=== PATIENT | male | born 1940 | race Caucasian/White ===

== ENCOUNTER 2021-09-15 15:33 | Outpatient (CLI) | payer MEDICARE ==
[2021-09-15 20:18] LABS: ESTIMATED AVERAGE GLUCOSE 103 mg/dL (70-100); HEMOGLOBIN A1c% 5.2 % (4.27-6.07)
[2021-09-15 20:32] LABS: BUN - BLOOD UREA NITROGEN 49 mg/dL (6-20); CALCIUM 9.5 mg/dL (8.5-10.3); CARBON DIOXIDE - CO2 25 mmol/L (21-32); CHLORIDE 104 mmol/L (101-111); CHOL/HDL RATIO 3.3 (<5.0); CHOLESTEROL 211 mg/dL; CREATININE 1.9 mg/dL (0.6-1.2); GFR - MDRD 34 (>89); GLUCOSE 106 mg/dL (70-100); HDL CHOLESTEROL 64 mg/dL; LDL CHOLESTEROL,CALCULATED 128 mg/dL; POTASSIUM 4.2 mmol/L (3.5-5.0); SODIUM 141 mmol/L (135-145); TRIGLYCERIDES 93 mg/dL; VLDL CHOLESTEROL 19 mg/dL
== END 2021-09-15 15:34 | disposition home or self-care (01) ==
LOC: LAB.S 15:33
PROVIDERS: ATTEND Internal Medicine
DX: I11.0 Hypertensive heart disease with heart failure (principal); I50.9 Heart failure, unspecified; E78.5 Hyperlipidemia, unspecified; Z13.1 Encounter for screening for diabetes mellitus
CPT/HCPCS: 36415; 80048; 80061; 83036; 83721

== ENCOUNTER 2022-02-24 02:11 | Outpatient (CLI) | payer MEDICARE | END 2022-02-24 02:12 | disposition critical access hospital (66) | LOC: EMS 02:11 | DX: R06.02 Shortness of breath (principal) | CPT/HCPCS: A0425; A0429 ==

== ENCOUNTER 2022-02-24 02:39 | Inpatient (IN) | payer MEDICARE, MEDICAID ==
--- NOTE | 2022-02-24 03:14 | ED Physician Documentation ---
PD HPI DYSPNEA - Stated complaint Stated Complaint: SOA - Chief complaint Chief Complaint: Resp - History obtained from History obtained from: Patient - Additional information Additional information: Patient is an 81-year-old male with a history significant for colon cancer, stroke, hypertension, heart failure presenting for evaluation of worsening shortness of breath. Patient reports his shortness of breath has been present for least 2 years but seems to be worsening and he was tired of it so activated EMS this evening. He sleeps on his left side and upright which helps. He also reports feeling increasingly weak for the last month with difficulty ambulating. He has had decreased appetite with poor p.o. intake for 2 to 3 months And unintentional weight loss.He denies fever, chest pain, abdominal pain, vomiting, melanotic stools.He has had a productive cough and denies hemoptysis. He has been taking furosemide daily with good urine output.He denies falls or injuries. Denies head injury. He sees a doctor once a year for an annual checkup but otherwise does not get more frequent checkups. He denies recent hospitalization. Patient given aspirin by EMS. Review of Systems Constitutional: reports: Fatigue, Weight Loss. denies: Fever Nose: denies: Congestion Cardiac: denies: Chest pain / pressure, Palpitations Respiratory: reports: Dyspnea, Cough GI: denies: Abdominal Pain, Nausea, Vomiting : denies: Dysuria Skin: reports: Rash Musculoskeletal: reports: Extremity swelling Neurologic: reports: Generalized weakness. denies: Syncope, Headache, Head injury PD PAST MEDICAL HISTORY - Present Medications Home Medications: Ambulatory Orders Medication Instructions Recorded Confirmed Ascorbic Acid [Vitamin C] 500 mg PO DAILY 02/24/22 02/24/22 Furosemide [Lasix] 40 mg PO DAILY 02/24/22 02/24/22 Ubidecarenone/Vit E Acet [Co Q-10 1 each PO DAILY 02/24/22 02/24/22 100 mg Softgel] Vitamin E 400 unit PO DAILY 02/24/22 02/24/22 - Allergies Allergies/Adverse Reactions: Allergies Allergy/AdvReac Type Severity Reaction Status Date / Time No Known Drug Allergies Allergy Verified 02/24/22 03:01 PD ED PE NORMAL - General General: No acute distress, Other (Cachectic, chronically ill-appearing) - HEENT HEENT: Atraumatic, Moist mucous membranes - Neck Neck: Supple, no meningeal sign - Cardiac Cardiac: RRR, No murmur, Strong equal pulses - Respiratory Respiratory: Other (Slightly tachypneic, diminished breath sounds at the bases) - Abdomen Abdomen: Normal bowel sounds, Soft, Non tender, Non distended, Other (Colostomy) - Derm Derm: Other (Cyanosis and pallor to fingers and toes with palpable distal pulses). 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, No motor deficit, Normal speech Eye Opening: Spontaneous Motor: Obeys Commands Verbal: Oriented GCS Score: 15 - Psych Psych: Normal mood, Normal affect Results - Vitals Vitals: Oxygen O2 Source Nasal cannula - EKG (time done) 0252 Rate: Rate (enter#) (91) Rhythm: NSR Intervals: Other (QRS 118) Ischemia: T wave inversion (V6), Other (Flattened T waves in inferior and lateral leads) Compare to prior EKG: Old EKG unavailable 0531 Rate: Rate (enter#) (81) Rhythm: NSR Ischemia: Other ([address] elevation V5) - Labs Labs: Laboratory Tests 02/24/22 02/24/22 02/24/22 03:16 03:32 03:32 WBC 10.3 RBC 5.08 Hgb 15.9 Hct 47.4 MCV 93.3 MCH 31.3 H MCHC 33.5 RDW 15.7 H Plt Count 108 L MPV 11.9 H Neut # (Auto) 9.6 H Lymph # (Auto) 0.2 L Gonzales # (Auto) 0.5 Eos # (Auto) 0.0 Baso # (Auto) 0.0 Absolute Nucleated RBC 0.00 Nucleated RBC % 0.0 PT INR Bld Gas Analysis Time Sample Site ABG pH ABG pCO2 ABG pO2 ABG HCO3 ABG Total CO2 ABG O2 Saturation ABG Base Excess Jaylen Test Room Air Sodium 132 L Potassium 4.6 Chloride 94 L Carbon Dioxide 22 Anion Gap 16.0 H BUN 73 H Creatinine 2.4 H Estimated GFR (MDRD) 26 L Glucose 124 H Lactic Acid Calcium 9.2 Magnesium 2.7 Total Bilirubin 2.7 H AST 22 ALT 30 Alkaline Phosphatase 223 H Troponin I High Sens B-Natriuretic Peptide Total Protein 6.3 L Albumin 3.5 Globulin 2.8 Albumin/Globulin Ratio 1.3 Lipase 30 SARS-CoV-2 (PCR) NOT DETECTED Blood Type Blood Type Recheck Antibody Screen 02/24/22 02/24/22 02/24/22 03:32 03:32 03:32 WBC RBC Hgb Hct MCV MCH MCHC RDW Plt Count MPV Neut # (Auto) Lymph # (Auto) Gonzales # (Auto) Eos # (Auto) Baso # (Auto) Absolute Nucleated RBC Nucleated RBC % PT 17.1 H INR 1.5 H Bld Gas Analysis Time Sample Site ABG pH ABG pCO2 ABG pO2 ABG HCO3 ABG Total CO2 ABG O2 Saturation ABG Base Excess Jaylen Test Room Air Sodium Potassium Chloride Carbon Dioxide Anion Gap BUN Creatinine Estimated GFR (MDRD) Glucose Lactic Acid Calcium Magnesium Total Bilirubin AST ALT Alkaline Phosphatase Troponin I High Sens 63.9 H* B-Natriuretic Peptide Total Protein Albumin Globulin Albumin/Globulin Ratio Lipase SARS-CoV-2 (PCR) Blood Type O NEGATIVE Blood Type Recheck Antibody Screen NEGATIVE 02/24/22 02/24/22 02/24/22 03:32 03:32 03:41 WBC RBC Hgb Hct MCV MCH MCHC RDW Plt Count MPV Neut # (Auto) Lymph # (Auto) Gonzales # (Auto) Eos # (Auto) Baso # (Auto) Absolute Nucleated RBC Nucleated RBC % PT INR Bld Gas Analysis Time 0345 Sample Site LEFT RADIAL ABG pH 7.52 H ABG pCO2 27 L ABG pO2 90 ABG HCO3 22.0 ABG Total CO2 22.8 ABG O2 Saturation 98 ABG Base Excess 0.7 Jaylen Test POSITIVE Room Air YES Sodium Potassium Chloride Carbon Dioxide Anion Gap BUN Creatinine Estimated GFR (MDRD) Glucose Lactic Acid 3.5 H* Calcium Magnesium Total Bilirubin AST ALT Alkaline Phosphatase Troponin I High Sens B-Natriuretic Peptide 4830.00 H Total Protein Albumin Globulin Albumin/Globulin Ratio Lipase SARS-CoV-2 (PCR) Blood Type Blood Type Recheck Antibody Screen 02/24/22 02/24/22 02/24/22 05:44 07:58 07:58 WBC RBC Hgb Hct MCV MCH MCHC RDW Plt Count MPV Neut # (Auto) Lymph # (Auto) Gonzales # (Auto) Eos # (Auto) Baso # (Auto) Absolute Nucleated RBC Nucleated RBC % PT INR Bld Gas Analysis Time Sample Site ABG pH ABG pCO2 ABG pO2 ABG HCO3 ABG Total CO2 ABG O2 Saturation ABG Base Excess Jaylen Test Room Air Sodium Potassium Chloride Carbon Dioxide Anion Gap BUN Creatinine Estimated GFR (MDRD) Glucose Lactic Acid 2.6 H Calcium Magnesium Total Bilirubin AST ALT Alkaline Phosphatase Troponin I High Sens 71.4 H* B-Natriuretic Peptide Total Protein Albumin Globulin Albumin/Globulin Ratio Lipase SARS-CoV-2 (PCR) Blood Type Blood Type Recheck O NEGATIVE Antibody Screen PD MEDICAL DECISION MAKING - ED course Complexity details: reviewed results, re-evaluated patient, d/w patient ED course: Pt with SOB and increased leg swelling and orthopnea. Pt appears to have poor peripheral perfusion on exam, difficulty with pulse ox. ABG obtained with respiratory alkalosis. EKG and labs reviewed. Cr elevated at 2.4 but previous was 1.9 - unclear what pt's baseline is. Clinically pt appears volume overloaded. Given lasix with some diuresis, remains dyspneic after diuresis with short ambulation. Repeat troponin without significant elevation. Pt made aware of lung nodule on xray and need for CT. 0630 - Patient ambulated, Appeared quite dyspneic walking from the room to the [place] and back. Needed time to recover at the bedside. Difficulty with obtaining accurate Pleth for oxygen saturation. Tried with pulse on finger and forehead. Pt placed on oxygen for comfort given inability to obtain ambulatory pulse ox. 0632 - Discussed with hospitalist Dr. Sanz, Reviewed ABG, troponins and other labs as well as clinical picture. Patient to be placed in obs. Departure - Departure Disposition: ED Place in Observation Clinical Impression: AMARILIS (acute kidney injury), Lung nodule Congestive heart failure Qualifiers: Heart failure type: unspecified Heart failure chronicity: acute on chronic Qualified Code(s): I50.9 - Heart failure, unspecified Condition: Stable Discharge Date/Time: 02/24/22 08:04
[2022-02-24 03:44] LABS: BASOPHILS % (AUTO) 0.2 %; EOSINOPHILS % (AUTO) 0.1 %; HCT - HEMATOCRIT 47.4 % (42.0-52.0); HGB - HEMOGLOBIN 15.9 g/dL (14.0-18.0); LYMPHOCYTES # (AUTO) 0.2 10^3/uL (1.5-3.5); LYMPHOCYTES % (AUTO) 2.2 %; MEAN CORPUSCULAR HEMOGLOBIN 31.3 pg (27.0-31.0); MEAN CORPUSCULAR HGB CONC 33.5 g/dL (32.0-36.0); MEAN CORPUSCULAR VOLUME 93.3 fL (80.0-94.0); MEAN PLATELET VOLUME 11.9 fL (7.4-11.4); MONOCYTES # (AUTO) 0.5 10^3/uL (0.0-1.0); MONOCYTES % (AUTO) 4.4 %; NEUTROPHILS # (AUTO) 9.6 10^3/uL (1.5-6.6); NEUTROPHILS % (AUTO) 92.7 %; PLT - PLATELET COUNT 108 10^3/uL (130-450); RED BLOOD COUNT 5.08 10^6/uL (4.70-6.10); RED CELL DISTRIBUTION WIDTH 15.7 % (12.0-15.0); WHITE BLOOD COUNT 10.3 x10^3/uL (4.8-10.8)
[2022-02-24 03:49] LABS: ABG BASE EXCESS 0.7 mmol/L (-2.0-3.0); ABG PCO2 27 mmHg (34-45); ABG PH 7.52 (7.35-7.45); ABG PO2 90 mmHg (80-100); ABG TCO2 22.8 MMOL/L (21.0-29.0)
[2022-02-24 03:50] LABS: ABG OXYGEN SATURATION 98 % (94-98); ALLEN TEST POSITIVE
[2022-02-24 03:55] LABS: ALBUMIN 3.5 g/dL (3.2-5.5); ALBUMIN/GLOBULIN RATIO 1.3 (1.0-2.2); BILIRUBIN,TOTAL 2.7 mg/dL (0.2-1.0); CALCIUM 9.2 mg/dL (8.5-10.3); CREATININE 2.4 mg/dL (0.6-1.2); MAGNESIUM 2.7 mg/dL (1.7-2.8); POTASSIUM 4.6 mmol/L (3.5-5.0); TOTAL PROTEIN 6.3 g/dL (6.7-8.2)
[2022-02-24 03:56] LABS: INR 1.5 (0.8-1.2); PT - PROTHROMBIN TIME 17.1 secs (9.9-12.6)
[2022-02-24] MEDS ORDERED: FUROSEMIDE 40 MG/4 ML VIAL IVP STA (06:02)
[2022-02-24] MEDS ORDERED: oxyCODONE 5 MG TABLET PO PRN (06:55)
[2022-02-24] MEDS ORDERED: ACETAMINOPHEN 325 MG TABLET PO PRN (06:55)
[2022-02-24] MEDS ORDERED: ONDANSETRON ODT 4 MG TABLET TL PRN (06:55)
[2022-02-24] MEDS ORDERED: ONDANSETRON 4 MG/2 ML VIAL IVP PRN (06:55)
[2022-02-24] MEDS ORDERED: SODIUM CHLORIDE 0.9% 1,000 ML IV SCH (07:00)
--- NOTE | 2022-02-24 08:09 | HISTORY & PHYSICAL EXAMINATION ---
Chief Complaint - Chief Complaint Chief Complaint: Shortness of breath History of Present Illness - Admitted From Admitted From:: Home - History Obtained From Records Reviewed: [facility] History obtained from: Patient, Bank Reconciliator, EMR - History of Present Illness HPI Comment/Other: This is a 81-year-old male with a past medical history significant for hypertension who presents today complaining of worsening shortness of breath. He states this has been going on now for the past 2 years but has really progressed now to the point where he decided to come in last night. He states he does not have any dyspnea at rest but becomes quite dyspneic with minimal activity. He has had a nonproductive cough and endorses orthopnea. He has noticed his legs have become more edematous over the past couple of years. He denies any chest pain or palpitations. He does not believe he has a history of coronary artery disease. Based off of the research she has done online, he felt that he may have congestive heart failure that is also why he decided to come in today. He states he has been taking Lasix on a daily basis for the past 2 years but he cannot recall the dose. He does not believe he has a history of kidney disease. He reports a prior history of colon cancer and he had a colectomy with a colostomy many years ago. He reports his cancer is in remission. 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 We discussed goals of care and he confirms that he is a DNR and does not want mechanical ventilation. He is agreeable to any therapeutics including cardiac catheterization if necessary. History - Past Medical History Cardiovascular: reports: Hypertension GI: reports: Other (History of colon cancer) - Past Surgical History General: reports: Bowel surgery (Colectomy with colostomy in place.), Colonoscopy - Family & Social History Family History Comment/Other: He reports his father had multiple medical problems but he cannot recall what they were. Living arrangement: At home Living Situation: Alone Social History Notes: He smoked 2 packs a day for 30 years but quit in 1984. He drank a liter and a half of wine on a daily basis for about 10 years but quit over 7 years ago. Meds/Allgy - Home Medications Home Medications: Ambulatory Orders Medication Instructions Recorded Confirmed Furosemide [Lasix] 40 mg PO DAILY 02/24/22 02/24/22 Lisinopril/Hydrochlorothiazide 2 tab PO DAILY 02/24/22 02/24/22 [Zestoretic 20-12.5 mg Tablet] - Allergies Allergies/Adverse Reactions: Allergies Allergy/AdvReac Type Severity Reaction Status Date / Time No Known Drug Allergies Allergy Verified 02/24/22 03:01 Review of Systems - Constitutional Constitutional: denies: Fever, Chills - Ears, Nose & Throat Ears, Nose & Throat: reports: Postnasal drainage - Cardiovascular Cariovascular: reports: Edema, Exertional dyspnea, Decr. exercise tolerance. denies: Palpitations, Chest pain - Respiratory Respiratory: reports: Cough, Orthopnea, SOB with exertion. denies: Sputum production, SOB at rest - Gastrointestinal Gastrointestinal: denies: Abdominal pain, Nausea, Vomiting - Genitourinary Genitourinary: denies: Dysuria, Frequency, Urgency, Hematuria - Integumentary Integumentary: reports: Lesions. denies: Rash - Neurological Neurological: denies: General weakness, Focal weakness - Hematologic/Lymphatic Hematologic/Lymphatic: reports: Bruising. denies: Anemia, Bleeding tendencies - All Other Systems All Other Systems: reports: Reviewed and negative Prior Level of Functionality: Independent with his ADLs. Exam - Vital Signs Reviewed Vital Signs: Yes Vital Signs: Vital Signs x48h Temp Pulse Resp BP Pulse Ox 02/24/22 07:00 82 23 108/81 H 100 02/24/22 05:08 82 25 H 104/76 100 02/24/22 02:52 36.6 C 93 25 H 108/80 100 - Physical Exam General Appearance: positive: No acute distress, Alert Eyes Bilateral: positive: Normal inspection, Conjunctivae nml ENT: positive: ENT inspection nml, Other (Nasal cannula in place.) Neck: positive: Nml inspection Respiratory: positive: No respiratory distress, Rales. negative: Wheezes, Rhonchi Cardiovascular: positive: Regular rate & rhythm, No murmur. negative: Tachycardia Abdomen: positive: Non-tender, No distention, Other (Colostomy in left lower quadrant noted.). negative: Tenderness Skin: positive: Warm, Dry, Other (He has a small shallow ulceration over the right lower extremity superior to the ankle that is about 1 x 1 cm.) Extremities: positive: Pedal edema (He has +1 to +2 pitting edema in the bilateral lower extremities.) Neurologic/Psychiatric: positive: Motor nml. negative: Disoriented to person, Disoriented to place, Disoriented to time Conclusion/Plan - Problem List (1) Acute on chronic heart failure Conclusion/Plan: The concern is for acute on chronic heart failure which I suspect is likely due to reduced ejection fraction given his significantly elevated BNP. He presents with dyspnea, lower extremity edema there is evidence of pulmonary vascular congestion on chest x-ray. We will diurese him with Lasix IV. Once his acute kidney injury resolves, we will initiate lisinopril. He will also need a beta- amarilys. We will treat him as if he has reduced ejection fraction heart failure. He will need an outpatient echocardiogram to convert this. Daily weights. Strict I's and O's. He will be monitored closely as given his elevated lactic acid, he can most definitely be at risk for cardiogenic shock although at this time he is maintaining his blood pressure. Qualifiers: Heart failure type: unspecified Qualified Code(s): I50.9 - Heart failure, unspecified (2) Acute kidney injury superimposed on CKD Conclusion/Plan: Suspect this is related to cardiorenal syndrome given the concern for heart fa ilure. Creatinine is elevated at 2.4 and review of prior labs revealed a creatinine of 1.9 it is unclear if this is his baseline or if that was also potentially acute kidney injury. We will diurese him with Lasix IV. Hold his home lisinopril and hydrochlorothiazide. We will check a renal ultrasound. Monitor renal function and urine output closely. (3) Elevated troponin Conclusion/Plan: His troponin is elevated but on recheck is relatively flat. His EKG reveals nonspecific ST segment changes. He does not have any chest pain. Suspect there is likely demand ischemia given the heart failure and acute kidney injury. We will start him on aspirin and statin. He will also need beta-amarilys. We will continue to trend his troponin. Monitor on telemetry. (4) Elevated lactic acid level Conclusion/Plan: His lactic acid is elevated at 3.5 and I suspect this may be related to his heart failure and poor perfusion. He does not appear to be septic at this point given lack of white blood cell count or fever. Chest x-ray reveals no obvious evidence of pneumonia. We will diurese him with Lasix and recheck a lactic acid. (5) Hyponatremia Conclusion/Plan: His serum is decreased at 132 this is likely due to to hypervolemic hyponatremia secondary to heart failure. This should improve with diuresis. (6) Lung nodule Conclusion/Plan: This was an incidental finding on the chest x-ray. He will need a dedicated CT of the chest for further evaluation. (7) History of colon cancer Conclusion/Plan: He has a history of colon cancer which she states is in remission. He has a colostomy in place. - Lab Results Lab results reviewed: Yes Fish Bones: 02/24/22 03:32 02/24/22 03:32 - Diagnostic Imaging Results Diagnostic Imaging Results: positive: Prelim report reviewed - EKG Results EKG Interpreted Independently: Yes EKG Comparison: No prior EKG EKG Findings: EKG shows a sinus rhythm with evidence of LVH. There are occasional PVCs. There are nonspecific ST segment changes in the lateral leads. Core Measures - Anticipated LOS I expect patient to be DC'd or transferred within 96 hours.: Yes - Issues Hospital Issues and Management Plan: 81-year-old male presents with apnea found to have acute congestive heart failure and acute on chronic kidney disease. He will be admitted for diuresis and medical management. - DVT/VTE - Prophylaxis VTE/DVT Device ordered at admit?: No VTE/DVT Prophylaxis med ordered at admit?: Yes
--- NOTE | 2022-02-24 09:01 | PHARMACY PROGRESS NOTE ---
- Best Possible Medication History Admit Date and Time: 02/24/22 0655 Processed by: Pharmacy Medication History completed: Yes Patient Interview: Completed Secondary Source(s): Pharmacy records, Insurance records As the person ultimately responsible for medication therapy, providers are able to order a medication from an existing home medication list in [facility] via the "Reconcile Routine" prior to Confirmation of that medication by applications support lead. Such practice is discouraged except when the physician, in their clinical judgment, deems that a medical need exists for a medication without regard to previous use.
--- NOTE | 2022-02-24 10:30 | XRAY Report ---
PROCEDURE: Chest 1 View X-Ray INDICATIONS: Short of breath TECHNIQUE: One view of the chest was acquired. COMPARISON: None FINDINGS: Surgical changes and devices: None. Lungs and pleura: No pleural effusions or pneumothorax. Mild generalized interstitial prominence can be seen. Minimal nodular opacity is seen involving the right medial lower lung. Mediastinum: Mediastinal contours appear normal. Heart size is moderately enlarged. Calcification is seen of the aortic arch. Bones and chest wall: No suspicious bony lesions. Age-appropriate degenerative changes are seen. Overlying soft tissues appear unremarkable. IMPRESSION: Cardiomegaly and interstitial prominence. CHF is suspected. Minimal nodular opacity is seen involving the right medial inferior lung. If clinically appropriate, please consider a follow-up CT for further evaluation. Note: No significant discrepancy from the preliminary report. Reviewed by: Joseph Lee MD on 02/24/2022 9:29 AM [place] Approved by: Joseph Lee MD on 02/24/2022 9:29 AM [place] Station ID: [id number]
[2022-02-24] MEDS ORDERED: FUROSEMIDE 40 MG/4 ML VIAL IVP SCH (12:00)
[2022-02-24] MEDS: ENOXAPARIN 30 MG/0.3 ML SYRINGE SUBQ SCH (12:13)
[2022-02-24] MEDS: SODIUM CHLORIDE FLUSH 0.9% 10 ML SYRINGE IVP SCH ×3 (12:13→23:42)
[2022-02-24 15:22] LABS: CALCIUM 8.8 mg/dL (8.5-10.3); CREATININE 2.2 mg/dL (0.6-1.2)
[2022-02-24] MEDS ORDERED: diphenhydrAMINE 25 MG CAPSULE PO PRN (16:27)
[2022-02-25 05:08] LABS: BASOPHILS % (AUTO) 0.1 %; EOSINOPHILS % (AUTO) 0.5 %; HCT - HEMATOCRIT 40.7 % (42.0-52.0); HGB - HEMOGLOBIN 13.9 g/dL (14.0-18.0); LYMPHOCYTES # (AUTO) 0.2 10^3/uL (1.5-3.5); LYMPHOCYTES % (AUTO) 2.9 %; MEAN CORPUSCULAR HEMOGLOBIN 31.4 pg (27.0-31.0); MEAN CORPUSCULAR HGB CONC 34.2 g/dL (32.0-36.0); MEAN CORPUSCULAR VOLUME 92.1 fL (80.0-94.0); MEAN PLATELET VOLUME 11.9 fL (7.4-11.4); MONOCYTES # (AUTO) 0.4 10^3/uL (0.0-1.0); MONOCYTES % (AUTO) 4.9 %; NEUTROPHILS % (AUTO) 91.3 %; PLT - PLATELET COUNT 113 10^3/uL (130-450); RED BLOOD COUNT 4.42 10^6/uL (4.70-6.10); RED CELL DISTRIBUTION WIDTH 15.5 % (12.0-15.0); WHITE BLOOD COUNT 7.7 x10^3/uL (4.8-10.8)
[2022-02-25 05:23] LABS: CALCIUM 8.5 mg/dL (8.5-10.3); POTASSIUM 3.5 mmol/L (3.5-5.0)
[2022-02-25] MEDS ORDERED: POTASSIUM CHLORIDE 20 MEQ TABLET PO ONE (08:08)
[2022-02-25] MEDS: ENOXAPARIN 30 MG/0.3 ML SYRINGE SUBQ SCH (08:39)
[2022-02-25] MEDS: SODIUM CHLORIDE FLUSH 0.9% 10 ML SYRINGE IVP SCH ×2 (08:39→17:37)
[2022-02-25] MEDS: FUROSEMIDE 40 MG/4 ML VIAL IVP SCH ×2 (08:39→13:17)
--- NOTE | 2022-02-25 08:50 | PROVIDER PROGRESS NOTE ---
Subjective - Prog Note Date Prog Note Date: 02/25/22 - Subjective Subjective: He reports feeling a little better compared to yesterday. Still feels short of breath at rest and with activity. Denies any chest pain. Feels like his leg edema is improved. Current Medications - Current Medications Current Medications: Active Medications Acetaminophen (Acetaminophen 325 Mg Tablet) 650 mg PO Q4HR PRN PRN Reason: Pain 1 to 4, or Fever Diphenhydramine HCl (Diphenhydramine 25 Mg Capsule) 25 mg PO QPM PRN PRN Reason: Insomnia Enoxaparin Sodium (Enoxaparin 30 Mg/0.3 Ml Syringe) 30 mg SUBQ DAILY [facility] Last Admin: 02/25/22 08:39 Dose: 30 mg Furosemide (Furosemide 40 Mg/4 Ml Vial) 60 mg IVP BIDDIURETIC [facility] Last Admin: 02/25/22 08:39 Dose: 60 mg Ondansetron HCl (Ondansetron Odt 4 Mg Tablet) 4 mg TL Q6HR PRN PRN Reason: Nausea / Vomiting Ondansetron HCl (Ondansetron 4 Mg/2 Ml Vial) 4 mg IVP Q6HR PRN PRN Reason: Nausea / Vomiting Oxycodone HCl (Oxycodone 5 Mg Tablet) 5 mg PO Q4HR PRN PRN Reason: Pain 5 to 7 Sodium Chloride (Sodium Chloride Flush 0.9% 10 Ml Syringe) 10 ml IVP PRN PRN PRN Reason: NEEDED PER PROVIDER ORDERS Sodium Chloride (Sodium Chloride Flush 0.9% 10 Ml Syringe) 10 ml IVP 0100,0900,1700 [facility] Last Admin: 02/25/22 08:39 Dose: 10 ml Ascorbic Acid [Vitamin C] 500 mg PO DAILY 02/24/22 Furosemide [Lasix] 40 mg PO DAILY 02/24/22 Ubidecarenone/Vit E Acet [Co Q-10 100 mg Softgel] 1 each PO DAILY 02/24/22 Vitamin E 400 unit PO DAILY 02/24/22 Objective - Vital Signs/Intake & Output Reviewed Vital Signs: Yes Vital Signs: Vital Signs x48h Temp Pulse Resp BP Pulse Ox 02/25/22 07:23 36.5 C 95 22 112/73 92 02/25/22 05:35 36.6 C 88 20 106/70 94 Intake & Output: Intake & Output 02/22/22 02/23/22 02/24/22 02/25/22 23:59 23:59 23:59 23:59 Intake Total 1100 740 Output Total 950 575 Balance 150 165 - Objective General Appearance: positive: No acute distress, Alert Eyes Bilateral: positive: Normal inspection, Conjunctivae nml ENT: positive: ENT inspection nml Neck: positive: Nml inspection Respiratory: positive: No respiratory distress, Rales. negative: Wheezes Cardiovascular: positive: Regular rate & rhythm, No murmur Abdomen: positive: Non-tender, No distention, Other (Colostomy in place.). negative: Tenderness Skin: positive: Warm, Dry, Other (Dressing in place over the bilateral lower extremities where the abrasions are present.) Extremities: positive: Pedal edema (+1 edema in the bilateral lower extremities) Neurologic/Psychiatric: negative: Disoriented to person, Disoriented to place - Lab Results Fish Bones: 02/25/22 04:57 02/25/22 04:57 Other Labs: Lab Results x24hrs 02/25/22 02/25/22 02/25/22 Range/Units 04:57 04:57 04:57 WBC 7.7 (4.8-10.8) x10^3/uL RBC 4.42 L (4.70-6.10) 10^6/uL Hgb 13.9 L (14.0-18.0) g/dL Hct 40.7 L (42.0-52.0) % MCV 92.1 (80.0-94.0) fL MCH 31.4 H (27.0-31.0) pg MCHC 34.2 (32.0-36.0) g/dL RDW 15.5 H (12.0-15.0) % Plt Count 113 L (130-450) 10^3/uL MPV 11.9 H (7.4-11.4) fL Neut # (Auto) 7.0 H (1.5-6.6) 10^3/uL Lymph # (Auto) 0.2 L (1.5-3.5) 10^3/uL [place] # (Auto) 0.4 (0.0-1.0) 10^3/uL Eos # (Auto) 0.0 (0.0-0.7) 10^3/uL Baso # (Auto) 0.0 (0.0-0.1) 10^3/uL Absolute Nucleated RBC 0.00 x10^3/uL Nucleated RBC % 0.0 /100WBC Sodium 132 L (135-145) mmol/L Potassium 3.5 (3.5-5.0) mmol/L Chloride 95 L (101-111) mmol/L Carbon Dioxide 24 (21-32) mmol/L Anion Gap 13.0 (6-13) BUN 67 H (6-20) mg/dL Creatinine 2.0 H (0.6-1.2) mg/dL Estimated GFR (MDRD) 32 L (>89) Glucose 105 H (70-100) mg/dL Lactic Acid (0.5-2.2) mmol/L Calcium 8.5 (8.5-10.3) mg/dL Troponin I High Sens (2.3-19.7) ng/L B-Natriuretic Peptide 6302.00 H (5-100) pg/mL 02/24/22 02/24/22 02/24/22 Range/Units 18:51 14:55 14:55 WBC (4.8-10.8) x10^3/uL RBC (4.70-6.10) 10^6/uL Hgb (14.0-18.0) g/dL Hct (42.0-52.0) % MCV (80.0-94.0) fL MCH (27.0-31.0) pg MCHC (32.0-36.0) g/dL RDW (12.0-15.0) % Plt Count (130-450) 10^3/uL MPV (7.4-11.4) fL Neut # (Auto) (1.5-6.6) 10^3/uL Lymph # (Auto) (1.5-3.5) 10^3/uL [place] # (Auto) (0.0-1.0) 10^3/uL Eos # (Auto) (0.0-0.7) 10^3/uL Baso # (Auto) (0.0-0.1) 10^3/uL Absolute Nucleated RBC x10^3/uL Nucleated RBC % /100WBC Sodium (135-145) mmol/L Potassium (3.5-5.0) mmol/L Chloride (101-111) mmol/L Carbon Dioxide (21-32) mmol/L Anion Gap (6-13) BUN (6-20) mg/dL Creatinine (0.6-1.2) mg/dL Estimated GFR (MDRD) (>89) Glucose (70-100) mg/dL Lactic Acid 2.5 H 3.3 H* (0.5-2.2) mmol/L Calcium (8.5-10.3) mg/dL Troponin I High Sens 66.7 H* (2.3-19.7) ng/L B-Natriuretic Peptide (5-100) pg/mL 02/24/22 02/24/22 02/24/22 Range/Units 14:55 11:24 11:24 WBC (4.8-10.8) x10^3/uL RBC (4.70-6.10) 10^6/uL Hgb (14.0-18.0) g/dL Hct (42.0-52.0) % MCV (80.0-94.0) fL MCH (27.0-31.0) pg MCHC (32.0-36.0) g/dL RDW (12.0-15.0) % Plt Count (130-450) 10^3/uL MPV (7.4-11.4) fL Neut # (Auto) (1.5-6.6) 10^3/uL Lymph # (Auto) (1.5-3.5) 10^3/uL [place] # (Auto) (0.0-1.0) 10^3/uL Eos # (Auto) (0.0-0.7) 10^3/uL Baso # (Auto) (0.0-0.1) 10^3/uL Absolute Nucleated RBC x10^3/uL Nucleated RBC % /100WBC Sodium 132 L (135-145) mmol/L Potassium 4.0 (3.5-5.0) mmol/L Chloride 94 L (101-111) mmol/L Carbon Dioxide 25 (21-32) mmol/L Anion Gap 13.0 (6-13) BUN 71 H (6-20) mg/dL Creatinine 2.2 H (0.6-1.2) mg/dL Estimated GFR (MDRD) 29 L (>89) Glucose 120 H (70-100) mg/dL Lactic Acid 3.5 H* (0.5-2.2) mmol/L Calcium 8.8 (8.5-10.3) mg/dL Troponin I High Sens 72.3 H* (2.3-19.7) ng/L B-Natriuretic Peptide (5-100) pg/mL Assessment/Plan - Problem List (1) Acute on chronic heart failure Impression: He feels improved and is lower extremity edema is improved as well. He is no longer requiring oxygen. His BNP is increased today to over 6000. I suspect he likely has a significantly reduced ejection fraction. His blood pressures are improved with systolics in the 110s. His lactic was still mildly elevated yesterday evening's we will recheck it again this morning. I would expect that this is now within normal limits given he appears to be perfusing much better compared to yesterday after diuresis. I did speak with cardiology today at [facility] to discuss potential transfer given lack of echocardiogram and to expedite work-up of his heart failure. They have no beds available at this moment but they also felt that if he shows rapid improvement in the heart failure then he can be followed up on an outpatient basis. If he is slow to improve and they recommended to reach out again for transfer. They also recommended the use of dobutamine if he shows evidence of cardiogenic shock such as hypotension or a rising lactic acid. At this time, we will continue to diurese him with Lasix 60 mg IV twice daily. We will hold off on lisinopril/spironolactone given the acute kidney injury. We will hold off on a beta-amarilys at this time until we ensure his blood pressure is stable and his lactic acid is normal. Continue low-sodium diet. Daily weights. Strict I's and O's. Qualifiers: Heart failure type: unspecified Qualified Code(s): I50.9 - Heart failure, unspecified (2) Acute kidney injury superimposed on CKD Impression: Suspect is likely related to cardiorenal syndrome given his heart failure. His creatinine is down to 2.0 today and I suspect that should continue to improve as we diurese him and improve his perfusion. We will continue to avoid nephrotoxins. No lisinopril or spironolactone given the acute kidney injury. Continue to monitor renal function and urine output. (3) Elevated troponin Impression: This is likely demand ischemia given the heart failure. His EKG did not suggest ischemia and he has no chest pain. He will ultimately need cardiology follow-up for ischemic work-up. (4) Elevated lactic acid level Impression: This appears secondary to poor perfusion due to the heart failure other than sepsis. His lactic acid is trending down but was still slightly elevated yest erday. We will recheck it again this morning. His blood pressure is improved as mentioned above. We will continue with diuresis and if his lactic acid remains elevated then will consider transferring to the ICU for inotropic support. (5) Hyponatremia Impression: This is secondary to the heart failure and is hypervolemic hyponatremia. His sodium is stable but this should improve as we diurese him further. (6) Lung nodule Impression: He will need a dedicated CT for further evaluation at some point. (7) History of colon cancer Impression: This is stable and he has a colostomy in place.
[2022-02-26] MEDS: SODIUM CHLORIDE FLUSH 0.9% 10 ML SYRINGE IVP SCH ×3 (00:34→20:13)
[2022-02-26 04:37] LABS: BASOPHILS % (AUTO) 0.3 %; EOSINOPHILS % (AUTO) 0.5 %; HCT - HEMATOCRIT 45.5 % (42.0-52.0); HGB - HEMOGLOBIN 15.5 g/dL (14.0-18.0); LYMPHOCYTES # (AUTO) 0.3 10^3/uL (1.5-3.5); LYMPHOCYTES % (AUTO) 3.2 %; MEAN CORPUSCULAR HEMOGLOBIN 31.5 pg (27.0-31.0); MEAN CORPUSCULAR HGB CONC 34.1 g/dL (32.0-36.0); MEAN CORPUSCULAR VOLUME 92.5 fL (80.0-94.0); MONOCYTES # (AUTO) 0.4 10^3/uL (0.0-1.0); NEUTROPHILS # (AUTO) 7.1 10^3/uL (1.5-6.6); NEUTROPHILS % (AUTO) 90.6 %; PLT - PLATELET COUNT 126 10^3/uL (130-450); RED BLOOD COUNT 4.92 10^6/uL (4.70-6.10); RED CELL DISTRIBUTION WIDTH 15.5 % (12.0-15.0); WHITE BLOOD COUNT 7.8 x10^3/uL (4.8-10.8)
[2022-02-26 04:44] LABS: CALCIUM 8.8 mg/dL (8.5-10.3); CREATININE 1.9 mg/dL (0.6-1.2); POTASSIUM 3.8 mmol/L (3.5-5.0)
[2022-02-26] MEDS: FUROSEMIDE 40 MG/4 ML VIAL IVP SCH ×2 (06:39→10:49)
[2022-02-26] MEDS: ASPIRIN CHEW 81 MG TABLET PO SCH (10:40)
[2022-02-26] MEDS: ENOXAPARIN 30 MG/0.3 ML SYRINGE SUBQ SCH (10:42)
[2022-02-26] MEDS ORDERED: FUROSEMIDE 20 MG/2 ML VIAL IVP ONE ×2 (10:56→10:58)
--- NOTE | 2022-02-26 13:09 | PROVIDER PROGRESS NOTE ---
Subjective - Prog Note Date Prog Note Date: 02/26/22 - Subjective Subjective: He is unhappy that he is at the hospital. He feels he is not getting better and that he is dying. He wants to go home to take care of a few things around the house. He still feels short of breath especially with activity. Current Medications - Current Medications Current Medications: Active Medications Acetaminophen (Acetaminophen 325 Mg Tablet) 650 mg PO Q4HR PRN PRN Reason: Pain 1 to 4, or Fever Aspirin (Aspirin Chew 81 Mg Tablet) 81 mg PO DAILY [facility] Last Admin: 02/26/22 10:40 Dose: 81 mg Atorvastatin Calcium (Atorvastatin 40 Mg Tablet) 40 mg PO QPM [facility] Diphenhydramine HCl (Diphenhydramine 25 Mg Capsule) 25 mg PO QPM PRN PRN Reason: Insomnia Enoxaparin Sodium (Enoxaparin 30 Mg/0.3 Ml Syringe) 30 mg SUBQ DAILY [facility] Last Admin: 02/26/22 10:42 Dose: 30 mg Furosemide (Furosemide 40 Mg/4 Ml Vial) 60 mg IVP BIDDIURETIC [facility] Last Admin: 02/26/22 10:49 Dose: 60 mg Ondansetron HCl (Ondansetron Odt 4 Mg Tablet) 4 mg TL Q6HR PRN PRN Reason: Nausea / Vomiting Ondansetron HCl (Ondansetron 4 Mg/2 Ml Vial) 4 mg IVP Q6HR PRN PRN Reason: Nausea / Vomiting Oxycodone HCl (Oxycodone 5 Mg Tablet) 5 mg PO Q4HR PRN PRN Reason: Pain 5 to 7 Sodium Chloride (Sodium Chloride Flush 0.9% 10 Ml Syringe) 10 ml IVP PRN PRN PRN Reason: NEEDED PER PROVIDER ORDERS Sodium Chloride (Sodium Chloride Flush 0.9% 10 Ml Syringe) 10 ml IVP 0100,0900,1700 [facility] Last Admin: 02/26/22 10:43 Dose: 10 ml Ascorbic Acid [Vitamin C] 500 mg PO DAILY 02/24/22 Furosemide [Lasix] 40 mg PO DAILY 02/24/22 Ubidecarenone/Vit E Acet [Co Q-10 100 mg Softgel] 1 each PO DAILY 02/24/22 Vitamin E 400 unit PO DAILY 02/24/22 Objective - Vital Signs/Intake & Output Reviewed Vital Signs: Yes Vital Signs: Vital Signs x48h Temp Pulse Resp BP 02/26/22 08:01 36.3 C L 89 36 H 106/73 Intake & Output: Intake & Output 02/23/22 02/24/22 02/25/22 02/26/22 23:59 23:59 23:59 23:59 Intake Total 1100 1610 500 Output Total 950 700 Balance 150 910 500 - Objective General Appearance: positive: No acute distress, Alert Eyes Bilateral: positive: Conjunctivae nml ENT: positive: ENT inspection nml Neck: positive: Nml inspection Respiratory: positive: No respiratory distress, Rales, Other (Diminished bilaterally). negative: Wheezes Cardiovascular: positive: Regular rate & rhythm. negative: Tachycardia Skin: positive: Other (Chronic hyperpigmentation of the bilateral lower extremities. Dressing is in place over the right lower extremity rehab multiple small abrasions. His lower extremities do appear mottled superior to the knee.) Extremities: positive: Pedal edema (Trace to +1 edema in bilateral lower extremities.) Neurologic/Psychiatric: negative: Disoriented to person, Disoriented to place - Lab Results Fish Bones: 02/26/22 04:18 02/26/22 04:18 Other Labs: Lab Results x24hrs 02/26/22 02/26/22 02/26/22 Range/Units 04:18 04:18 04:18 WBC 7.8 (4.8-10.8) x10^3/uL RBC 4.92 (4.70-6.10) 10^6/uL Hgb 15.5 (14.0-18.0) g/dL Hct 45.5 (42.0-52.0) % MCV 92.5 (80.0-94.0) fL MCH 31.5 H (27.0-31.0) pg MCHC 34.1 (32.0-36.0) g/dL RDW 15.5 H (12.0-15.0) % Plt Count 126 L (130-450) 10^3/uL MPV 12.0 H (7.4-11.4) fL Neut # (Auto) 7.1 H (1.5-6.6) 10^3/uL Lymph # (Auto) 0.3 L (1.5-3.5) 10^3/uL [place] # (Auto) 0.4 (0.0-1.0) 10^3/uL Eos # (Auto) 0.0 (0.0-0.7) 10^3/uL Baso # (Auto) 0.0 (0.0-0.1) 10^3/uL Absolute Nucleated RBC 0.00 x10^3/uL Nucleated RBC % 0.0 /100WBC Sodium 132 L (135-145) mmol/L Potassium 3.8 (3.5-5.0) mmol/L Chloride 95 L (101-111) mmol/L Carbon Dioxide 22 (21-32) mmol/L Anion Gap 15.0 H (6-13) BUN 67 H (6-20) mg/dL Creatinine 1.9 H (0.6-1.2) mg/dL Estimated GFR (MDRD) 34 L (>89) Glucose 112 H (70-100) mg/dL Calcium 8.8 (8.5-10.3) mg/dL B-Natriuretic Peptide 8488.00 H (5-100) pg/mL Assessment/Plan - Problem List (1) Acute on chronic heart failure Impression: Although he is no longer hypoxia and edema is improved, he is still quite dyspneic with minimal activity and his BNP continues to increase. As mentioned before, I suspect his ejection fraction is significantly reduced and likely 15 to 20%. I spoke with cardiology at [place] in [place] yesterday and they felt as long as he shows evidence of improvement from a heart failure standpoint and there would be no need to transfer but if he is slow to improve then we could consider transfer to higher level of care for expedited work-up. The patient has remained normotensive and his lactic acid is now within normal limits so we have held off on inotropic support. We will continue with IV diuresis with Lasix. No metoprolol given the soft blood pressures still. No lisinopril or spironolactone due to acute kidney injury. We will see if my colleague can perform an echocardiogram at bedside tomorrow given she is a geophysical manager by training. Ultimately if his ejection fraction is significantly reduced and the patient does not want aggressive therapy then we could consider hospice. Qualifiers: Heart failure type: unspecified Qualified Code(s): I50.9 - Heart failure, unspecified (2) Acute kidney injury superimposed on CKD Impression: His creatinine continues to steadily improve. Today it is 1.9 and it was 2.4 on admission. This is likely cardiorenal syndrome. Labs from last year revealed a creatinine of 1.9 and I am unsure if this is his baseline or if that was also acute kidney injury. We will continue to diurese him with Lasix and monitor his renal function urine output. No lisinopril or spironolactone for the time being. Avoid nephrotoxins. (3) Non compliance with medical treatment Impression: He declined Lasix this morning but did agree to take it at around 11 AM. He threatened to leave AGAINST MEDICAL ADVICE yesterday and I discussed the risks and benefits. He was able to express to me that he understands he is in the hospital because of his heart but he felt like he was going to either ways and felt there is no benefit to hospitalization. We discussed potential treatment options and how we can improve his dyspnea with therapies. He was agreeable to staying yesterday evening. This morning once again he requested to leave AGAINST MEDICAL ADVICE. Once again discussed the risks and benefits. He is so deconditioned and dyspneic that he is only able to walk a few steps at a time. He ultimately ended up going back to his room and has been cooperative with therapy for the time being. (4) Elevated troponin Impression: This is likely demand ischemia given the heart failure. His EKG did not suggest ischemia and he has no chest pain. He will ultimately need cardiology follow-up for ischemic work-up. (5) Elevated lactic acid level Impression: This is resolved. This was likely secondary to hypoperfusion secondary to the heart failure rather than sepsis. We will continue to treat his underlying heart failure as mentioned above. (6) Hyponatremia Impression: This is secondary to the heart failure and is hypervolemic hyponatremia. His sodium is stable but this should improve as we diurese him further. (7) Lung nodule Impression: He will need a dedicated CT for further evaluation at some point. (8) History of colon cancer Impression: This is stable and he has a colostomy in place.
[2022-02-26] MEDS: ATORVASTATIN 40 MG TABLET PO SCH (20:12)
[2022-02-27 05:33] LABS: BASOPHILS % (AUTO) 0.1 %; EOSINOPHILS # (AUTO) 0.1 10^3/uL (0.0-0.7); EOSINOPHILS % (AUTO) 0.7 %; HCT - HEMATOCRIT 46.3 % (42.0-52.0); HGB - HEMOGLOBIN 15.6 g/dL (14.0-18.0); LYMPHOCYTES # (AUTO) 0.3 10^3/uL (1.5-3.5); LYMPHOCYTES % (AUTO) 3.4 %; MEAN CORPUSCULAR HGB CONC 33.7 g/dL (32.0-36.0); MEAN PLATELET VOLUME 11.9 fL (7.4-11.4); MONOCYTES # (AUTO) 0.5 10^3/uL (0.0-1.0); MONOCYTES % (AUTO) 5.4 %; NEUTROPHILS # (AUTO) 7.7 10^3/uL (1.5-6.6); NEUTROPHILS % (AUTO) 90.2 %; PLT - PLATELET COUNT 121 10^3/uL (130-450); RED BLOOD COUNT 5.03 10^6/uL (4.70-6.10); RED CELL DISTRIBUTION WIDTH 15.9 % (12.0-15.0); WHITE BLOOD COUNT 8.6 x10^3/uL (4.8-10.8)
[2022-02-27 05:40] LABS: CALCIUM 8.8 mg/dL (8.5-10.3); POTASSIUM 3.5 mmol/L (3.5-5.0)
[2022-02-27] MEDS: FUROSEMIDE 40 MG/4 ML VIAL IVP SCH ×2 (06:47→14:14)
--- NOTE | 2022-02-27 08:50 | PROVIDER PROGRESS NOTE ---
Hospitalist Cross-cover Note - Cross-Cover Note Cross-Cover Note: As a Board-certified [employer] Intern, I performed a limited bedside Echo. 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 Normal thickness LV wall posteriorly, with mild hypokinesis. Overall LVEF 10% RV function also severely depressed Calcified papillary muscles, mitral annulus and aortic valve leaflets Mild mitral and tricuspid regurg. The aortic and pulmonic valves were not evaluated by color Doppler. PA pressure could not be accurately assessed.
[2022-02-27] MEDS ORDERED: IPRATROPIUM/ALBUTEROL 3 ML NEB INH PRN (08:56)
[2022-02-27] MEDS: ASPIRIN CHEW 81 MG TABLET PO SCH (09:25)
[2022-02-27] MEDS: carvediloL 3.125 MG TABLET PO SCH ×2 (09:26→21:01)
[2022-02-27] MEDS: ENOXAPARIN 30 MG/0.3 ML SYRINGE SUBQ SCH (09:26)
[2022-02-27] MEDS: SPIRONOLACTONE 25 MG TABLET PO SCH (09:26)
[2022-02-27] MEDS: SODIUM CHLORIDE FLUSH 0.9% 10 ML SYRINGE IVP SCH ×3 (09:29→16:44)
[2022-02-27] MEDS: IPRATROPIUM/ALBUTEROL 3 ML NEB INH SCH ×3 (11:23→19:06)
[2022-02-27] MEDS: SODIUM CHLORIDE FLUSH 0.9% 10 ML SYRINGE IVP PRN (14:15)
--- NOTE | 2022-02-27 15:59 | PROVIDER PROGRESS NOTE ---
Assessment/Plan - Problem List (1) Acute on chronic systolic (congestive) heart failure Assessment/Plan: Although he is no longer hypoxic and leg edema has improved, he is still tachypneic and quite dyspneic with minimal activity and his BNP is still very elevated (6000>> 8000>> 6000 today). Yesterday's Hospitalist spoke with Cardiology at [facility] in [place] and Cardiology felt as long as he shows ev idence of improvement from a heart failure standpoint, then there would be no need to transfer him, but if he is slow to improve then we could consider transfer to higher level of care for expedited work-up. Since he is not neg in fluid status since admission and has never had an Echo, and we have no Pension Fund Manager at this hospital currently, I performed a limited bedside Echo, as a Board-Certified Pension Fund Manager. The Echo showed : 4-chamber dilation, a large LV apical aneurysm, LVEF 10%, RV function also severely depressed. We will continue with IV diuresis with Lasix. Will start Coreg 3.125 bid, with hold parameters due to low BP. Start YESSENIA-I, stagger it with other meds, due to low BP, and therefore will give at dinnertime. Watch creat, if no worse, will start Spironolactone I explained the Echo result to the patient and asked if the patient does not want aggressive therapy, then we could consider Hospice (since he wanted to go home the last 2 days AMA). However, today he stated he wanted to try intensive management, which would include a cardiac work-up at a larger facility. Will try to have him accepted in transfer. (2) Acute kidney injury superimposed on CKD Impression: His creatinine has plateaued at 2.0 today, yesterday creat was 1.9 and it was 2.4 on admission. This is likely cardiorenal syndrome. Labs from last year revealed a creatinine of 1.9 and it is unknown if this is his baseline or if that was also acute kidney injury. We will continue to diurese him with iv Lasix, since he is not in neg fluid balance despite iv diuretics and 900 cc/day oral fluid limit Will start lisinopril for his low EF. Watch creat, if no worse, will start Spironolactone Follow BMP daily and monitor I's and Os. Avoid nephrotoxins. (3) Elevated troponin Impression: His troponins were elevated at 66-70, but were flat. This was likely due to heart failure. His EKG did not suggest ischemia and he has no chest pain. Given the apical wall motion abnormality, he will need cardiology ischemia work- up. (4) Hyponatremia Impression: This is still present and is secondary to the heart failure and hypervolemic hyponatremia. Continue oral fluid restriction of 900 cc/day. His sodium should improve as we diurese him further. Follow BMP daily. (5) Lung nodule Impression: He will need a dedicated CT for further evaluation at some point. (6) History of colon cancer Impression: This is stable and he has a colostomy in place. (7) Severe protein calorie malnutrition. He has significant muscle wasting of his temporal muscles and palms. He has had a weight loss of About 40 pounds in the past year (21% of his usual weight) and has significantly reduced functional capacity. 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 (8) Non compliance with medical treatment Impression: Resolved. He threatened to leave AGAINST MEDICAL ADVICE recently twice and was able to express that he understands he is in the hospital because of his heart but he felt like he was going to either way and felt there is no benefit to hospitalization. He was agreeable to staying and ultimately ended up going back to his room and has been cooperative with therapy for the time being. Today, he new he needed more treatment and even wanted the option of transfer to higher level of care. (8) Elevated lactic acid level Impression: Resolved. This was likely secondary to hypoperfusion secondary to the heart failure rather than from sepsis. We will continue to treat his underlying heart failure as mentioned above. - Current Meds Current Meds: Current Medications Generic Name Dose Route Start Last Admin Trade Name Freq PRN Reason Stop Dose Admin Albuterol/Ipratropium 3 ml 02/27/22 11:00 02/27/22 14:48 Ipratropium/Albuterol 3 Ml Neb INH 3 ml RTQID LINDA Administration Aspirin 81 mg 02/26/22 09:00 02/27/22 09:25 Aspirin Chew 81 Mg Tablet PO 81 mg DAILY LINDA Administration Atorvastatin Calcium 40 mg 02/26/22 21:00 02/26/22 20:12 Atorvastatin 40 Mg Tablet PO 40 mg QPM LINDA Administration Carvedilol 3.125 mg 02/27/22 09:00 02/27/22 09:26 Carvedilol 3.125 Mg Tablet PO 3.125 mg BID LINDA Administration Enoxaparin Sodium 30 mg 02/24/22 09:00 02/27/22 09:26 Enoxaparin 30 Mg/0.3 Ml Syringe SUBQ 30 mg DAILY LINDA Administration Furosemide 60 mg 02/25/22 09:00 02/27/22 14:14 Furosemide 40 Mg/4 Ml Vial IVP 60 mg BIDDIURETIC LINDA Administration Sodium Chloride 10 ml 02/24/22 06:55 02/27/22 14:15 Sodium Chloride Flush 0.9% 10 Ml Syringe IVP 10 ml PRN PRN Administration NEEDED PER PROVIDER ORDERS Sodium Chloride 10 ml 02/24/22 09:00 02/27/22 09:29 Sodium Chloride Flush 0.9% 10 Ml Syringe IVP 10 ml 0100,0900,1700 LINDA Administration Spironolactone 25 mg 02/27/22 09:00 02/27/22 09:26 Spironolactone 25 Mg Tablet PO 25 mg DAILY LINDA Administration - Lab Result Fish Bone Diagrams: 02/27/22 05:20 02/27/22 05:20 - Additional Planning My Orders: My Active Orders 02/27/22 08:54 Miscellaenous Nursing Order [RC] QSHIFT 02/27/22 08:56 Nebulizer/MDI Tx. [RC] .QID Resp Teach Nebulizer/MDI [RC] .ONCE Ipratropium/Albuterol [Duoneb] 3 ml INH Q4HR PRN 02/27/22 09:00 Spironolactone [Aldactone] 25 mg PO DAILY carvediloL [Coreg] 3.125 mg PO BID 02/27/22 11:00 Ipratropium/Albuterol [Duoneb] 3 ml INH RTQID 02/27/22 11:49 Daily Dressing Change [RC] DAILY 02/27/22 16:00 Multivitamin W/Minerals [Theragran M] 1 tab PO DAILYWM 02/27/22 17:00 lisinopriL [Zestril] 2.5 mg PO 1700 02/28/22 05:00 MAGNESIUM [CHEM] DAILYLAB Subjective - Subjective Patient Reports: Shortness of Breath (Still winded with speaking or movement, leg edema has resolved) Objective Vital Signs: Vital Signs - 24 hr 02/26/22 02/26/22 02/26/22 15:58 20:02 23:41 Temperature 36.1 C L 36.4 C L 36.4 C L Heart Rate Heart Rate [ 91 92 91 Brachial] Respiratory 24 24 18 Rate Blood Pressure 112/80 104/70 127/57 L [Right Brachial artery] O2 Saturation 99 93 95 02/27/22 02/27/22 02/27/22 04:34 07:38 11:10 Temperature 36.2 C L 36.4 C L 36.3 C L Heart Rate Heart Rate [ 79 89 98 Brachial] Respiratory 18 24 20 Rate Blood Pressure 105/70 116/78 105/70 [Right Brachial artery] O2 Saturation 91 L 94 96 02/27/22 02/27/22 02/27/22 11:25 14:48 15:23 Temperature 36.3 C L Heart Rate 88 85 Heart Rate [ 77 Brachial] Respiratory 18 14 15 Rate Blood Pressure 109/70 [Right Brachial artery] O2 Saturation 99 Oxygen O2 Source Room air I&O (Last 24 Hrs): Intake and Output Totals x24h 02/25/22 02/26/22 02/27/22 23:59 23:59 23:59 Intake Total 1610 1138 650 Output Total 700 350 650 Balance 910 788 0 General: Alert, Oriented x3, Other (Temporal muscle wasting) HEENT: Mucous membr. moist/pink, Other (Poor dentition) Neuro: Alert, Non Focal Cardiovascular: Regular rate, No murmurs, Other (Distant heart sounds) Respiratory: Rales (at both bases R>L), Other (Increased AP diameter, no wheezing) Abdomen: Soft Extremities: No clubbing, No edema - Results Results: Laboratory Results WBC 8.6 x10^3/uL (4.8-10.8) 02/27/22 05:20 RBC 5.03 10^6/uL (4.70-6.10) 02/27/22 05:20 Hgb 15.6 g/dL (14.0-18.0) 02/27/22 05:20 Hct 46.3 % (42.0-52.0) 02/27/22 05:20 MCV 92.0 fL (80.0-94.0) 02/27/22 05:20 MCH 31.0 pg (27.0-31.0) 02/27/22 05:20 MCHC 33.7 g/dL (32.0-36.0) 02/27/22 05:20 RDW 15.9 % (12.0-15.0) H 02/27/22 05:20 Plt Count 121 10^3/uL (130-450) L 02/27/22 05:20 MPV 11.9 fL (7.4-11.4) H 02/27/22 05:20 Neut # (Auto) 7.7 10^3/uL (1.5-6.6) H 02/27/22 05:20 Lymph # (Auto) 0.3 10^3/uL (1.5-3.5) L 02/27/22 05:20 [place] # (Auto) 0.5 10^3/uL (0.0-1.0) 02/27/22 05:20 Eos # (Auto) 0.1 10^3/uL (0.0-0.7) 02/27/22 05:20 Baso # (Auto) 0.0 10^3/uL (0.0-0.1) 02/27/22 05:20 Absolute Nucleated RBC 0.00 x10^3/uL 02/27/22 05:20 Nucleated RBC % 0.0 /100WBC 02/27/22 05:20 PT 17.1 secs (9.9-12.6) H 02/24/22 03:32 INR 1.5 (0.8-1.2) H 02/24/22 03:32 Bld Gas Analysis Time 0345 02/24/22 03:41 Sample Site LEFT RADIAL 02/24/22 03:41 ABG pH 7.52 (7.35-7.45) H 02/24/22 03:41 ABG pCO2 27 mmHg (34-45) L 02/24/22 03:41 ABG pO2 90 mmHg (80-100) 02/24/22 03:41 ABG HCO3 22.0 mmol/L (22.0-26.0) 02/24/22 03:41 ABG Total CO2 22.8 MMOL/L (21.0-29.0) 02/24/22 03:41 ABG O2 Saturation 98 % (94-98) 02/24/22 03:41 ABG Base Excess 0.7 mmol/L (-2.0-3.0) 02/24/22 03:41 Jaylen Test POSITIVE 02/24/22 03:41 Room Air YES 02/24/22 03:41 Sodium 131 mmol/L (135-145) L 02/27/22 05:20 Potassium 3.5 mmol/L (3.5-5.0) 02/27/22 05:20 Chloride 93 mmol/L (101-111) L 02/27/22 05:20 Carbon Dioxide 23 mmol/L (21-32) 02/27/22 05:20 Anion Gap 15.0 (6-13) H 02/27/22 05:20 BUN 70 mg/dL (6-20) H 02/27/22 05:20 Creatinine 2.0 mg/dL (0.6-1.2) H 02/27/22 05:20 Estimated GFR (MDRD) 32 (>89) L 02/27/22 05:20 Glucose 111 mg/dL (70-100) H 02/27/22 05:20 Lactic Acid 2.1 mmol/L (0.5-2.2) 02/25/22 09:02 Calcium 8.8 mg/dL (8.5-10.3) 02/27/22 05:20 Magnesium 2.7 mg/dL (1.7-2.8) 02/24/22 03:32 Total Bilirubin 2.7 mg/dL (0.2-1.0) H 02/24/22 03:32 AST 22 IU/L (10-42) 02/24/22 03:32 ALT 30 IU/L (10-60) 02/24/22 03:32 Alkaline Phosphatase 223 IU/L (42-121) H 02/24/22 03:32 Troponin I High Sens 66.7 ng/L (2.3-19.7) H* 02/24/22 14:55 B-Natriuretic Peptide 6706.00 pg/mL (5-100) H 02/27/22 05:20 Total Protein 6.3 g/dL (6.7-8.2) L 02/24/22 03:32 Albumin 3.5 g/dL (3.2-5.5) 02/24/22 03:32 Globulin 2.8 g/dL (2.1-4.2) 02/24/22 03:32 Albumin/Globulin Ratio 1.3 (1.0-2.2) 02/24/22 03:32 Lipase 30 U/L (22-51) 02/24/22 03:32 SARS-CoV-2 (PCR) NOT DETECTED 02/24/22 03:16 Blood Type O NEGATIVE 02/24/22 03:32 Blood Type Recheck O NEGATIVE 02/24/22 07:58 Antibody Screen NEGATIVE 02/24/22 03:32
[2022-02-27] MEDS: lisinopriL 5 MG TABLET PO SCH (16:44)
[2022-02-27] MEDS: MULTIVITAMIN W/MINERALS TABLET PO SCH (16:44)
[2022-02-27] MEDS: ATORVASTATIN 40 MG TABLET PO SCH (20:11)
[2022-02-28] MEDS: SODIUM CHLORIDE FLUSH 0.9% 10 ML SYRINGE IVP SCH ×4 (00:03→23:25)
[2022-02-28] MEDS: FUROSEMIDE 40 MG/4 ML VIAL IVP SCH ×2 (06:54→14:03)
[2022-02-28] MEDS: IPRATROPIUM/ALBUTEROL 3 ML NEB INH SCH ×4 (07:12→18:06)
[2022-02-28] MEDS: MULTIVITAMIN W/MINERALS TABLET PO SCH (07:55)
[2022-02-28] MEDS: ASPIRIN CHEW 81 MG TABLET PO SCH (08:04)
[2022-02-28] MEDS: carvediloL 3.125 MG TABLET PO SCH ×2 (08:05→20:54)
[2022-02-28] MEDS: ENOXAPARIN 30 MG/0.3 ML SYRINGE SUBQ SCH (08:05)
[2022-02-28] MEDS ORDERED: SPIRONOLACTONE 25 MG TABLET PO ONE (14:30)
--- NOTE | 2022-02-28 15:08 | PROVIDER PROGRESS NOTE ---
Assessment/Plan - Problem List (1) Acute on chronic systolic (congestive) heart failure Assessment/Plan: Today he is not hypoxic, his leg edema and tachypnea have resolved, but he is quite dyspneic with minimal activity. BNP is better but elevated (6000>> 8000>> 6000>> 2000 today). The previous Hospitalist spoke with Cardiology at [facility] in [place] and Cardiology felt as long as he shows evidence of improvement from a heart failure standpoint, then there would be no need to transfer him, but if he is slow to improve then we could consider transfer to higher level of care for expedited work-up. Since he was not neg in fluid status yesterday since admission and had never had an Echo, and we have no Injection Molding Machine Tender at this hospital currently, I performed a limited bedside Echo yesterday, as a Board-Certified Commutator Tester. The Echo showed : 4-chamber dilation, a large LV apical aneurysm, LVEF 10%, RV function also severely depressed. We are continuing with IV diuresis with Lasix. We started Coreg 3.125 bid, with hold parameters due to low BP. We started YESSENIA-I, staggering it with other meds, due to low BP, and therefore ordered at dinnertime. We also started Spironolactone I explained the Echo result to the patient yesterday and asked if the patient does not want aggressive therapy, then we could consider Hospice (since he wanted to go home the previous days AMA). However, he stated he wanted to try intensive management, which would include a cardiac work-up at a larger facility. I have reached out to [facility] and [facility] to have him accepted in transfer, but both are full and he is on the waiting lists. (2) Acute kidney injury superimposed on CKD Impression: His creatinine has increased again at 2, yesterday creat was 1.9 and it was 2.4 on admission. This is likely cardiorenal syndrome. Labs from last year revealed a creatinine of 1.9 and it is unknown if this is his baseline or if that was also acute kidney injury. We will continue to diurese him with iv Lasix, since he is not in neg fluid balance despite iv diuretics and on a 900 cc/day oral fluid limit We started lisinopril and Spironolactone for his low EF. Follow BMP daily and monitor I's and Os. Avoid nephrotoxins. (3) Elevated troponin Impression: His troponins were elevated at 66-70, but were flat. This was likely due to heart failure. His EKG did not suggest ischemia and he has no chest pain. Given the LV apical wall motion abnormality, he will need cardiology ischemia work-up. We are trying to get him transferred (4) Hyponatremia Impression: This is still present and is secondary to the heart failure and hypervolemic hyponatremia. Continue oral fluid restriction of 900 cc/day. His sodium should improve as we diurese him further. Follow BMP daily. (5) Lung nodule Impression: He will need a dedicated CT for further evaluation at some point. (6) History of colon cancer Impression: This is stable and he has a colostomy in place. (7) Severe protein calorie malnutrition Impression: He has significant muscle wasting of his temporal muscles and palms. He has had a weight loss of about 40 pounds in the past year (21% of his usual weight) and has significantly reduced functional capacity. 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 (8) Non compliance with medical treatment Impression: Resolved. He threatened to leave AGAINST MEDICAL ADVICE recently twice and was able to ex press that he understands he is in the hospital because of his heart but he felt like he was going to either way and felt there is no benefit to hospitalization. He was agreeable to staying and ultimately ended up going back to his room and has been cooperative with therapy for the time being. Today, he new he needed more treatment and even wanted the option of transfer to higher level of care. (8) Elevated lactic acid level Impression: Resolved. This was likely secondary to hypoperfusion secondary to the heart failure rather than from sepsis. We will continue to treat his underlying heart failure as mentioned above. - Current Meds Current Meds: Current Medications Generic Name Dose Route Start Last Admin Trade Name Freq PRN Reason Stop Dose Admin Albuterol/Ipratropium 3 ml 02/27/22 11:00 02/28/22 14:59 Ipratropium/Albuterol 3 Ml Neb INH 3 ml RTQID LINDA Administration Aspirin 81 mg 02/26/22 09:00 02/28/22 08:04 Aspirin Chew 81 Mg Tablet PO 81 mg DAILY LINDA Administration Atorvastatin Calcium 40 mg 02/26/22 21:00 02/27/22 20:11 Atorvastatin 40 Mg Tablet PO 40 mg QPM LINDA Administration Enoxaparin Sodium 30 mg 02/24/22 09:00 02/28/22 08:05 Enoxaparin 30 Mg/0.3 Ml Syringe SUBQ 30 mg DAILY LINDA Administration Furosemide 60 mg 02/25/22 09:00 02/28/22 14:03 Furosemide 40 Mg/4 Ml Vial IVP 60 mg BIDDIURETIC LINDA Administration Lisinopril 2.5 mg 02/27/22 17:00 02/27/22 16:44 Lisinopril 5 Mg Tablet PO 2.5 mg 1700 LINDA Administration Multivitamins/Minerals 1 tab 02/27/22 16:00 02/28/22 07:55 Multivitamin W/Minerals Tablet PO 1 tab DAILYWM LINDA Administration Sodium Chloride 10 ml 02/24/22 06:55 02/27/22 14:15 Sodium Chloride Flush 0.9% 10 Ml Syringe IVP 10 ml PRN PRN Administration NEEDED PER PROVIDER ORDERS Sodium Chloride 10 ml 02/24/22 09:00 02/28/22 08:05 Sodium Chloride Flush 0.9% 10 Ml Syringe IVP 10 ml 0100,0900,1700 LINDA Administration - Lab Result Fish Bone Diagrams: 02/27/22 05:20 02/27/22 05:20 - Additional Planning My Orders: My Active Orders 02/27/22 16:00 Multivitamin W/Minerals [Theragran M] 1 tab PO DAILYWM 02/27/22 17:00 lisinopriL [Zestril] 2.5 mg PO 1700 02/28/22 13:47 Spironolactone [Aldactone] 25 mg PO DAILY 02/28/22 13:49 carvediloL [Coreg] 3.125 mg PO BID Subjective - Subjective Patient Reports: Feeling Better, Resting Comfortably, Shortness of Breath (with activity) Objective Vital Signs: Vital Signs - 24 hr 02/27/22 02/27/22 02/27/22 15:23 19:07 20:07 Temperature 36.3 C L 36.4 C L Heart Rate 92 Heart Rate [ 77 81 Brachial] Heart Rate [ Monitoring electrodes] Respiratory 15 18 18 Rate Blood Pressure 109/70 89/58 L [Right Brachial artery] O2 Saturation 99 100 04/19/22 04/19/22 04/20/22 20:59 23:57 04:40 Temperature 36.5 C 36.3 C L Heart Rate Heart Rate [ 66 Brachial] Heart Rate [ 67 Monitoring electrodes] Respiratory 18 16 Rate Blood Pressure 100/63 82/48 L 88/56 L [Right Brachial artery] O2 Saturation 99 99 02/28/22 02/28/22 02/28/22 07:13 07:46 11:06 Temperature 36.3 C L Heart Rate 75 80 Heart Rate [ 78 Brachial] Heart Rate [ Monitoring electrodes] Respiratory 14 20 18 Rate Blood Pressure 98/63 [Right Brachial artery] O2 Saturation 94 02/28/22 11:21 Temperature Heart Rate Heart Rate [ 75 Brachial] Heart Rate [ Monitoring electrodes] Respiratory 18 Rate Blood Pressure 97/62 [Right Brachial artery] O2 Saturation 92 Oxygen O2 Source Room air I&O (Last 24 Hrs): Intake and Output Totals x24h 02/26/22 02/27/22 02/28/22 23:59 23:59 23:59 Intake Total 1138 1005 1200 Output Total 350 1075 1000 Balance 788 -70 200 General: Alert, Oriented x3 HEENT: Mucous membr. moist/pink Neck: Supple Neuro: Alert, Non Focal Cardiovascular: Regular rate, Other (distant heart sounds) Respiratory: Rales (at bilateral bases) Abdomen: Normal bowel sounds, Soft Extremities: No clubbing, No edema - Results Results: Laboratory Results WBC 8.6 x10^3/uL (4.8-10.8) 02/27/22 05:20 RBC 5.03 10^6/uL (4.70-6.10) 02/27/22 05:20 Hgb 15.6 g/dL (14.0-18.0) 02/27/22 05:20 Hct 46.3 % (42.0-52.0) 02/27/22 05:20 MCV 92.0 fL (80.0-94.0) 02/27/22 05:20 MCH 31.0 pg (27.0-31.0) 02/27/22 05:20 MCHC 33.7 g/dL (32.0-36.0) 02/27/22 05:20 RDW 15.9 % (12.0-15.0) H 02/27/22 05:20 Plt Count 121 10^3/uL (130-450) L 02/27/22 05:20 MPV 11.9 fL (7.4-11.4) H 02/27/22 05:20 Neut # (Auto) 7.7 10^3/uL (1.5-6.6) H 02/27/22 05:20 Lymph # (Auto) 0.3 10^3/uL (1.5-3.5) L 02/27/22 05:20 Bond # (Auto) 0.5 10^3/uL (0.0-1.0) 02/27/22 05:20 Eos # (Auto) 0.1 10^3/uL (0.0-0.7) 02/27/22 05:20 Baso # (Auto) 0.0 10^3/uL (0.0-0.1) 02/27/22 05:20 Absolute Nucleated RBC 0.00 x10^3/uL 02/27/22 05:20 Nucleated RBC % 0.0 /100WBC 02/27/22 05:20 PT 17.1 secs (9.9-12.6) H 02/24/22 03:32 INR 1.5 (0.8-1.2) H 02/24/22 03:32 Bld Gas Analysis Time 0345 02/24/22 03:41 Sample Site LEFT RADIAL 02/24/22 03:41 ABG pH 7.52 (7.35-7.45) H 02/24/22 03:41 ABG pCO2 27 mmHg (34-45) L 02/24/22 03:41 ABG pO2 90 mmHg (80-100) 02/24/22 03:41 ABG HCO3 22.0 mmol/L (22.0-26.0) 02/24/22 03:41 ABG Total CO2 22.8 MMOL/L (21.0-29.0) 02/24/22 03:41 ABG O2 Saturation 98 % (94-98) 02/24/22 03:41 ABG Base Excess 0.7 mmol/L (-2.0-3.0) 02/24/22 03:41 Jaylen Test POSITIVE 02/24/22 03:41 Room Air YES 02/24/22 03:41 Sodium 131 mmol/L (135-145) L 02/27/22 05:20 Potassium 3.5 mmol/L (3.5-5.0) 02/27/22 05:20 Chloride 93 mmol/L (101-111) L 02/27/22 05:20 Carbon Dioxide 23 mmol/L (21-32) 02/27/22 05:20 Anion Gap 15.0 (6-13) H 02/27/22 05:20 BUN 70 mg/dL (6-20) H 02/27/22 05:20 Creatinine 2.0 mg/dL (0.6-1.2) H 02/27/22 05:20 Estimated GFR (MDRD) 32 (>89) L 02/27/22 05:20 Glucose 111 mg/dL (70-100) H 02/27/22 05:20 Lactic Acid 2.1 mmol/L (0.5-2.2) 02/25/22 09:02 Calcium 8.8 mg/dL (8.5-10.3) 02/27/22 05:20 Magnesium 2.2 mg/dL (1.7-2.8) 02/28/22 04:29 Total Bilirubin 2.7 mg/dL (0.2-1.0) H 02/24/22 03:32 AST 22 IU/L (10-42) 02/24/22 03:32 ALT 30 IU/L (10-60) 02/24/22 03:32 Alkaline Phosphatase 223 IU/L (42-121) H 02/24/22 03:32 Troponin I High Sens 66.7 ng/L (2.3-19.7) H* 02/24/22 14:55 B-Natriuretic Peptide 6706.00 pg/mL (5-100) H 02/27/22 05:20 Total Protein 6.3 g/dL (6.7-8.2) L 02/24/22 03:32 Albumin 3.5 g/dL (3.2-5.5) 02/24/22 03:32 Globulin 2.8 g/dL (2.1-4.2) 02/24/22 03:32 Albumin/Globulin Ratio 1.3 (1.0-2.2) 02/24/22 03:32 Lipase 30 U/L (22-51) 02/24/22 03:32 SARS-CoV-2 (PCR) NOT DETECTED 02/24/22 03:16 Blood Type O NEGATIVE 02/24/22 03:32 Blood Type Recheck O NEGATIVE 02/24/22 07:58 Antibody Screen NEGATIVE 02/24/22 03:32
[2022-02-28] MEDS: lisinopriL 5 MG TABLET PO SCH (17:00)
[2022-02-28] MEDS: ATORVASTATIN 40 MG TABLET PO SCH (20:55)
[2022-03-01] MEDS: SODIUM CHLORIDE FLUSH 0.9% 10 ML SYRINGE IVP PRN (05:57)
[2022-03-01] MEDS: FUROSEMIDE 40 MG/4 ML VIAL IVP SCH (05:57)
[2022-03-01] MEDS: IPRATROPIUM/ALBUTEROL 3 ML NEB INH SCH ×4 (07:21→18:32)
[2022-03-01 08:33] LABS: CALCIUM 8.6 mg/dL (8.5-10.3); CREATININE 1.6 mg/dL (0.6-1.2); POTASSIUM 2.8 mmol/L (3.5-5.0)
[2022-03-01] MEDS: SPIRONOLACTONE 25 MG TABLET PO SCH (08:46)
[2022-03-01] MEDS: MULTIVITAMIN W/MINERALS TABLET PO SCH (08:46)
[2022-03-01] MEDS: carvediloL 3.125 MG TABLET PO SCH ×2 (08:47→20:52)
[2022-03-01] MEDS: SODIUM CHLORIDE FLUSH 0.9% 10 ML SYRINGE IVP SCH ×2 (08:47→20:52)
[2022-03-01] MEDS: ENOXAPARIN 30 MG/0.3 ML SYRINGE SUBQ SCH (08:47)
[2022-03-01] MEDS: ASPIRIN CHEW 81 MG TABLET PO SCH (08:47)
--- NOTE | 2022-03-01 10:49 | CONSULTATION NOTE ---
Palliative Care Consultation - Referral Referring Provider: Dr. Thao Zurita Time of Visit: [id number] Referral setting: Hospitalized patient Referral Reason: Clarification of Goals/CHF/Cachexia - Information Sources Records reviewed: Previous records reviewed History/Review of Systems obtained from: Patient Exam limitations: Clinical condition (mild STM deficits noted) - History of Present Illness Brief History of Present Illness: This is an 81-year-old gentleman who describes ongoing decline over the last couple years more acutely over the last few weeks. Patient reports weight loss, worsening lower extremity edema, shortness of breath, to the point where he could not breathe and called 911. He has been having increased lower extremity edema, with reports blisters that were coalescing, and popping. He does have lower extremity wounds currently wrapped. Reports he has not been eating or drinking well for the last few weeks, this is related to anorexia and not feeling like eating. Patient has a history of colon cancer, unclear how this plays into the picture, patient has not had any further follow-up regarding this. Patient reports often avoids doctors. Patient has provided mixed messages to staff, palliative care has been asked to meet with patient regarding goals of care whether to go to higher level care or transition to comfort focused care and/or hospice Medical/Surgical History - Past Medical History Cardiovascular: reports: Congestive heart failure, Hypertension Respiratory: reports: COPD GI: reports: Other (History of colon cancer) : reports: Renal insuffiency HEENT: reports: Chronic vision loss Psych: reports: Depression, Anxiety - Past Surgical History General: reports: Bowel surgery, Colonoscopy HEENT: reports: Tonsil/Adenoidectomy Social History - Living Situation Living Situation: Alone Support System: [place] he is often been an unhappy isabelle and has a difficult history, 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 Reports he has been working on his anger issues, he does have limited resources for an financially. My understanding is he lives in a small apartment, and is expecting to have to leave secondary to the landlord was going to remodel the house. Family History - Family History Family History: Mother: (one brother committed suicide), Father: , Brother: Alive and Well, , Alzheimer's Disease Medications/Allergies - Medications Active Medication List: Active Medications Acetaminophen (Acetaminophen 325 Mg Tablet) 650 mg PO Q4HR PRN PRN Reason: Pain 1 to 4, or Fever Albuterol/Ipratropium (Ipratropium/Albuterol 3 Ml Neb) 3 ml INH Q4HR PRN PRN Reason: Wheezing Albuterol/Ipratropium (Ipratropium/Albuterol 3 Ml Neb) 3 ml INH RTQID [facility] Last Admin: 03/01/22 07:21 Dose: 3 ml Aspirin (Aspirin Chew 81 Mg Tablet) 81 mg PO DAILY [facility] Last Admin: 03/01/22 08:47 Dose: 81 mg Atorvastatin Calcium (Atorvastatin 40 Mg Tablet) 40 mg PO QPM [facility] Last Admin: 02/28/22 20:55 Dose: Not Given Carvedilol (Carvedilol 3.125 Mg Tablet) 3.125 mg PO BID [facility] Last Admin: 03/01/22 08:47 Dose: 3.125 mg Diphenhydramine HCl (Diphenhydramine 25 Mg Capsule) 25 mg PO QPM PRN PRN Reason: Insomnia Enoxaparin Sodium (Enoxaparin 30 Mg/0.3 Ml Syringe) 30 mg SUBQ DAILY [facility] Last Admin: 03/01/22 08:47 Dose: 30 mg Furosemide (Furosemide 40 Mg/4 Ml Vial) 60 mg IVP BIDDIURETIC [facility] Last Admin: 03/01/22 05:57 Dose: 60 mg Lisinopril (Lisinopril 5 Mg Tablet) 2.5 mg PO 1700 [facility] Last Admin: 02/28/22 17:00 Dose: 2.5 mg Multivitamins/Minerals (Multivitamin W/Minerals Tablet) 1 tab PO DAILYWM [facility] Last Admin: 03/01/22 08:46 Dose: 1 tab Ondansetron HCl (Ondansetron Odt 4 Mg Tablet) 4 mg TL Q6HR PRN PRN Reason: Nausea / Vomiting Ondansetron HCl (Ondansetron 4 Mg/2 Ml Vial) 4 mg IVP Q6HR PRN PRN Reason: Nausea / Vomiting Oxycodone HCl (Oxycodone 5 Mg Tablet) 5 mg PO Q4HR PRN PRN Reason: Pain 5 to 7 Sodium Chloride (Sodium Chloride Flush 0.9% 10 Ml Syringe) 10 ml IVP PRN PRN PRN Reason: NEEDED PER PROVIDER ORDERS Last Admin: 03/01/22 05:57 Dose: 10 ml Sodium Chloride (Sodium Chloride Flush 0.9% 10 Ml Syringe) 10 ml IVP 0100,0900,1700 [facility] Last Admin: 03/01/22 08:47 Dose: 10 ml Spironolactone (Spironolactone 25 Mg Tablet) 25 mg PO DAILY [facility] Last Admin: 03/01/22 08:46 Dose: 25 mg Ascorbic Acid [Vitamin C] 500 mg PO DAILY 02/24/22 Furosemide [Lasix] 40 mg PO DAILY 02/24/22 Ubidecarenone/Vit E Acet [Co Q-10 100 mg Softgel] 1 each PO DAILY 02/24/22 Vitamin E 400 unit PO DAILY 02/24/22 - Allergies Allergies/Adverse Reactions: Allergies Allergy/AdvReac Type Severity Reaction Status Date / Time No Known Drug Allergies Allergy Verified 02/24/22 03:01 Physical Exam - Vital Signs Vital Signs: Vital Signs x48h Temp Pulse Pulse Pulse Resp BP Pulse Ox 03/01/22 07:50 36.6 C 86 20 104/63 96 03/01/22 07:21 75 14 03/01/22 03:25 36.3 C L 72 16 96/64 96 Palliative Care - POLST Patient has POLST: Yes POLST Status: DNR, Selective Treatment (completed at visit) Pain: No pain Tiredness/Fatigue: Severe (7-10) Drowsiness/Sedation: Mild (1-3) Nausea: None Anorexia: Severe (7-10), Weight loss (reports 20 pound wt loss over 2 months) Dyspnea: Severe (7-10) Depression: Moderate (4-6) Anxiety: Severe (7-10) (worried about what to do) Feelings of wellbeing/Perceived Quality of Life: Poor, Worsening Sleep: Sleeps poorly Constipation: Comment (colostomy) Performance Status: Patient reports his baseline functional status has been actually pretty good, has been able to walk, and manage his own affairs. He reports this has been a slow decline and more acute decline over the last few weeks to months. - Palliative Care Discussion: Met with patient regarding his ambivalence about what to do. He reports I "hate people taking care of me", and "I cannot drink water". He does understand he has heart failure, this is new diagnosis to him. He does understand he is quite ill and it is serious. He understands he needs to make a decision about whether to focus on getting better or improving his health or focusing on comfort and transition to hospice. We did discuss in the context of this, that he is 81-1/2 years old, he has had complicated and difficult life, reports he has had a gradual decline in health since 2012. He had given up drinking 7 or 8 years ago, feels like he is finally on the white right track. He finds enjoyment in life with reading and has been writing a novel, is almost finished with except the last . He does have a complex social situation, with needing to leave his current situation as they are going to remodel the home. He is unable to identify anyone to be a DPOA, and has no family left. He said he had always prided hi mself on not going to the doctor, but has been the last little bit. He reports he has been frightened with his increased shortness of breath that is why he finally called 911. But has had quite a few changes over the last couple months, with anorexia, not eating, weight loss, weakness, increased lower extremity edema and his blisters. We discussed weighing benefits and burdens of moving forward as far as seeing if he can improve his current quality of life and manage his disease versus transitioning focusing on comfort. He is feels like he is not quite ready to throw in the towel quite yet, and would like to proceed at least trial to have a better quality of life and see if he can impact his quantity of life. We did fill out a POLST, he is quite clear he is a DO NOT RESUSCITATE/DNI and if were to have an event would want to be transition to comfort measures. I am documenting this as he has no one to speak for himself. He does perceive his quality of life as having declined that does appear its been in the context of his health. We reviewed his goals, it is a focus on quality of life, at this point he would like to pursue managing his new diagnosis of heart failure and see what is possible, this would include if he were to need to go to a SNF for strengthening and rehab. If he were to have an event or not to improve and things continue to deteriorate, he would want to transition to comfort and have a respectful . He said he is not afraid of dying, he perceives it as a "bubble pops", but is hopeful to meet a few final goals including his finishing his novel. Results - Lab Results Lab results reviewed: Yes Fish Bones: 02/27/22 05:20 03/01/22 08:18 Lab and Imaging Results: Lab Results x24hrs 03/01/22 03/01/22 Range/Units 08:18 08:18 Sodium 139 (135-145) mmol/L Potassium 2.8 L (3.5-5.0) mmol/L Chloride 96 L (101-111) mmol/L Carbon Dioxide 31 (21-32) mmol/L Anion Gap 12.0 (6-13) BUN 60 H (6-20) mg/dL Creatinine 1.6 H (0.6-1.2) mg/dL Estimated GFR (MDRD) 42 L (>89) Glucose 106 H (70-100) mg/dL Calcium 8.6 (8.5-10.3) mg/dL B-Natriuretic Peptide 6966.00 H (5-100) pg/mL Impression and Recommendations - Palliative Care Impression: This is an 81-year-old gentleman who has been admitted for acute exacerbation of heart failure, patient perceives this is a new diagnosis. He also presented with acute kidney injury superimposed on CKD, hyponatremia, and history of colon cancer.In the context of patient's goals, he has been somewhat ambivalent, but now is clear he would like to move forward and see what would be possible in improving his health, but if he were to decline, or continue to deteriorate he would want to transition to focus comfort care. Palliative care meeting with patient to clarify these goals, completed POLST with DN AR/DNI and selective tr eatments, patient unable to identify a DPOA. Recommendations/Counseling Done: 1. Anxiety. This is multifactorial, patient has very little social support, has always been alone. 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 He was hoping to have an overall improvement in his health, though this is been much more complicated for him to navigate. He is anxious about making decisions in the context of his new diagnosis. Was willing to talk to palliative care about fears and concerns as well as complete POLST. 2. Acute CHF exacerbation. Patient reports this is a new diagnosis to him, with limited understanding, though we did discuss given the severity of his heart failure, it is still most likely going to be a progressive disease which he will need to manage long-term and does carry with it a limited prognosis. Patient after much discussion, would like to move forward with transfer and improving overall outcome hoping for both quality and quantity of life. Patient will need further diagnostic work-up to define more accurately prognosis and treatment plan. In discussion with hospitalist, goal is to continue to move towards transfer to higher level of care. 3. Advanced care planning. Patient has done no advance care planning, is unable to identify any 1 to be a DPOA. We did complete a POLST with DN AR/DNI and selective treatments for goals, as patient will continue to navigate healthcare system. If patient unable to speak for himself, and had a condition that was irreversible, would want to transition to comfort care.He would not be interested in dialysis nor tube feedings, or any other life prolonging measures. 60 minutes with greater than 50% of this done in counseling regarding goals of care, coordination of care with hospital team, and anticipatory guidance.
[2022-03-01] MEDS ORDERED: DIGOXIN 125 MCG TABLET PO STA (12:14)
[2022-03-01] MEDS ORDERED: POTASSIUM CHLORIDE 20 MEQ TABLET PO ONE (13:12)
--- NOTE | 2022-03-01 13:42 | PROVIDER PROGRESS NOTE ---
Assessment/Plan - Problem List (1) Acute on chronic systolic (congestive) heart failure Assessment/Plan: He is not hypoxic, his leg edema has resolved, but he is tachypneic when speaking and quite dyspneic with minimal activity. BNP is better. The previous Hospitalist spoke with Cardiology at [place] in [place] af[place] admission, and Cardiology felt as long as he shows evidence of improvement from a heart failure standpoint, then there would be no need to transfer him, but if he is slow to improve then we could consider transfer to higher level of care for expedited work-up. A limited bedside Echo was done and showed : 4-chamber dilation, a large LV apical aneurysm, LVEF 10%, RV function also severely depressed. We will transition IV Lasix to po Lasix. We started Coreg 3.125 bid, with hold parameters due to low BP. We started YESSENIA-I, staggering it with other meds, due to low BP, and therefore ordered at dinnertime. We also started Spironolactone Following BNP daily. I explained the Echo result to the patient and asked if the patient does not want aggressive therapy, then we could consider Hospice (since he wanted to go home the previous days AMA). However, he stated he wanted to try intensive management, which would include a cardiac work-up at a larger facility. I have reached out to [facility] and [facility] to have him accepted in transfer, but both are full and he is on the waiting lists. Today I have contacted both of those and also called [facility]. Palliative Care was requested by patient, to review his care goals and he was seen by Sonya Francois NP today. He wants to be a DNR but does want to be evaluated and be offered cardiac management by specialists. (2) Acute kidney injury superimposed on CKD Impression: He likely has cardiorenal syndrome. BUN/creat is risong with diuresis as well. Labs from last year revealed a creatinine of 1.9 and it is unknown if this is his baseline or if that was also acute kidney injury. We will continue to diurese him with Lasix, since he is not in neg fluid balance despite iv diuretics and on a 900 cc/day oral fluid limit We started lisinopril and Spironolactone for his low EF. Follow BMP daily and monitor I's and Os. Avoid nephrotoxins. (3) PSVT Today, the patient was sitting up in a chair and telemetry showed an 18 beat run of SVT, at rate 130. It stopped spontaneously and heart rate returned back to the 70s. He was asymptomatic. One dose of Digoxin 0.125 mg ordered. Potassium to be replaced as well (see #5). (4) Hyponatremia Impression: This is still present and is secondary to the heart failure and hypervolemic hyponatremia. Continue oral fluid restriction of 900 cc/day. Continue Lasix Follow BMP daily. (5) Hypokalemia Caused by loop diuretic Will replace with KCl only 20 mEq, to AMARILIS. (6) Elevated troponin Impression: His troponins were elevated at 66-70, but were flat. This was likely due to heart failure. His EKG did not suggest ischemia and he has no chest pain. Given the LV apical wall motion abnormality, he will need cardiology ischemia work-up. We are trying to get him transferred (7) Lung nodule Impression: He will need a dedicated CT for further evaluation at some point. (8) Severe protein calorie malnutrition Impression: He has significant muscle wasting of his temporal muscles and palms. He has had a weight loss of about 40 pounds in the past year (21% of his usual weight) and has significantly reduced functional capacity. 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 (9) History of colon cancer Impression: This is stable and he has a colostomy in place. (10) Non compliance with medical treatment Impression: Resolved. He threatened to leave AGAINST MEDICAL ADVICE recently twice and was able to express that he understands he is in the hospital because of his heart but he felt like he was going to either way and felt there is no benefit to hospitalization. He was agreeable to staying and ultimately ended up going back to his room and has been cooperative with therapy for the time being. For the past 3 days, he understands that he needs more treatment and even wants the option of transfer to higher level of care. (11) Elevated lactic acid level Impression: Resolved. This was likely secondary to hypoperfusion secondary to the heart failure rather than from sepsis. We will continue to treat his underlying heart failure as mentioned above. - Current Meds Current Meds: Current Medications Generic Name Dose Route Start Last Admin Trade Name Freq PRN Reason Stop Dose Admin Albuterol/Ipratropium 3 ml 02/27/22 11:00 03/01/22 11:09 Ipratropium/Albuterol 3 Ml Neb INH 3 ml RTQID LINDA Administration Aspirin 81 mg 02/26/22 09:00 03/01/22 08:47 Aspirin Chew 81 Mg Tablet PO 81 mg DAILY LINDA Administration Atorvastatin Calcium 40 mg 02/26/22 21:00 02/28/22 20:55 Atorvastatin 40 Mg Tablet PO Not Given QPM [facility] Carvedilol 3.125 mg 02/28/22 13:49 03/01/22 08:47 Carvedilol 3.125 Mg Tablet PO 3.125 mg BID LINDA Administration Enoxaparin Sodium 30 mg 02/24/22 09:00 03/01/22 08:47 Enoxaparin 30 Mg/0.3 Ml Syringe SUBQ 30 mg DAILY LINDA Administration Furosemide 60 mg 02/25/22 09:00 03/01/22 05:57 Furosemide 40 Mg/4 Ml Vial IVP 60 mg BIDDIURETIC LINDA Administration Lisinopril 2.5 mg 02/27/22 17:00 02/28/22 17:00 Lisinopril 5 Mg Tablet PO 2.5 mg 1700 LINDA Administration Multivitamins/Minerals 1 tab 02/27/22 16:00 03/01/22 08:46 Multivitamin W/Minerals Tablet PO 1 tab DAILYWM LINDA Administration Sodium Chloride 10 ml 02/24/22 06:55 03/01/22 05:57 Sodium Chloride Flush 0.9% 10 Ml Syringe IVP 10 ml PRN PRN Administration NEEDED PER PROVIDER ORDERS Sodium Chloride 10 ml 02/24/22 09:00 03/01/22 08:47 Sodium Chloride Flush 0.9% 10 Ml Syringe IVP 10 ml 0100,0900,1700 LINDA Administration Spironolactone 25 mg 02/28/22 13:47 03/01/22 08:46 Spironolactone 25 Mg Tablet PO 25 mg DAILY LINDA Administration - Lab Result Fish Bone Diagrams: 02/27/22 05:20 03/01/22 08:18 - Additional Planning My Orders: My Active Orders 02/28/22 13:47 Spironolactone [Aldactone] 25 mg PO DAILY 02/28/22 13:49 carvediloL [Coreg] 3.125 mg PO BID 03/01/22 16:00 POTASSIUM [CHEM] Timed Subjective - Subjective Patient Reports: Shortness of Breath, Other (Fatigued after sitting up in a chair for hours) Objective Vital Signs: Vital Signs - 24 hr 02/28/22 02/28/22 02/28/22 15:00 15:17 18:06 Temperature 36.4 C L Heart Rate 81 72 Heart Rate [ 71 Brachial] Heart Rate [ Monitoring electrodes] Respiratory 14 15 14 Rate Blood Pressure 101/69 [Right Brachial artery] O2 Saturation 100 02/28/22 02/28/22 03/01/22 20:12 23:25 03:25 Temperature 36.3 C L 36.4 C L 36.3 C L Heart Rate Heart Rate [ 67 70 72 Brachial] Heart Rate [ Monitoring electrodes] Respiratory 14 18 16 Rate Blood Pressure 94/60 93/57 L 96/64 [Right Brachial artery] O2 Saturation 99 93 96 03/01/22 03/01/22 03/01/22 07:21 07:50 11:09 Temperature 36.6 C Heart Rate 75 74 Heart Rate [ Brachial] Heart Rate [ 86 Monitoring electrodes] Respiratory 14 20 14 Rate Blood Pressure 104/63 [Right Brachial artery] O2 Saturation 96 03/01/22 13:00 Temperature 36.5 C Heart Rate Heart Rate [ 71 Brachial] Heart Rate [ Monitoring electrodes] Respiratory 24 Rate Blood Pressure 87/58 L [Right Brachial artery] O2 Saturation 93 Oxygen O2 Source Room air I&O (Last 24 Hrs): Intake and Output Totals x24h 02/27/22 02/28/22 03/01/22 23:59 23:59 23:59 Intake Total 1005 1520 420 Output Total 1075 1550 400 Balance -70 -30 20 General: Alert, Oriented x3, Other (Appears fatigued) HEENT: Other (Dry mucosa) Neck: Supple Neuro: Alert (non-focal) Cardiovascular: Regular rate Respiratory: Other (Diminished breath sounds) Abdomen: Soft Extremities: No edema - Results Results: Laboratory Results WBC 8.6 x10^3/uL (4.8-10.8) 02/27/22 05:20 RBC 5.03 10^6/uL (4.70-6.10) 02/27/22 05:20 Hgb 15.6 g/dL (14.0-18.0) 02/27/22 05:20 Hct 46.3 % (42.0-52.0) 02/27/22 05:20 MCV 92.0 fL (80.0-94.0) 02/27/22 05:20 MCH 31.0 pg (27.0-31.0) 02/27/22 05:20 MCHC 33.7 g/dL (32.0-36.0) 02/27/22 05:20 RDW 15.9 % (12.0-15.0) H 02/27/22 05:20 Plt Count 121 10^3/uL (130-450) L 02/27/22 05:20 MPV 11.9 fL (7.4-11.4) H 02/27/22 05:20 Neut # (Auto) 7.7 10^3/uL (1.5-6.6) H 02/27/22 05:20 Lymph # (Auto) 0.3 10^3/uL (1.5-3.5) L 02/27/22 05:20 [place] # (Auto) 0.5 10^3/uL (0.0-1.0) 02/27/22 05:20 Eos # (Auto) 0.1 10^3/uL (0.0-0.7) 02/27/22 05:20 Baso # (Auto) 0.0 10^3/uL (0.0-0.1) 02/27/22 05:20 Absolute Nucleated RBC 0.00 x10^3/uL 02/27/22 05:20 Nucleated RBC % 0.0 /100WBC 02/27/22 05:20 PT 17.1 secs (9.9-12.6) H 02/24/22 03:32 INR 1.5 (0.8-1.2) H 02/24/22 03:32 Bld Gas Analysis Time 0345 02/24/22 03:41 Sample Site LEFT RADIAL 02/24/22 03:41 ABG pH 7.52 (7.35-7.45) H 02/24/22 03:41 ABG pCO2 27 mmHg (34-45) L 02/24/22 03:41 ABG pO2 90 mmHg (80-100) 02/24/22 03:41 ABG HCO3 22.0 mmol/L (22.0-26.0) 02/24/22 03:41 ABG Total CO2 22.8 MMOL/L (21.0-29.0) 02/24/22 03:41 ABG O2 Saturation 98 % (94-98) 02/24/22 03:41 ABG Base Excess 0.7 mmol/L (-2.0-3.0) 02/24/22 03:41 Jaylen Test POSITIVE 02/24/22 03:41 Room Air YES 02/24/22 03:41 Sodium 139 mmol/L (135-145) 03/01/22 08:18 Potassium 2.8 mmol/L (3.5-5.0) L 03/01/22 08:18 Chloride 96 mmol/L (101-111) L 03/01/22 08:18 Carbon Dioxide 31 mmol/L (21-32) 03/01/22 08:18 Anion Gap 12.0 (6-13) 03/01/22 08:18 BUN 60 mg/dL (6-20) H 03/01/22 08:18 Creatinine 1.6 mg/dL (0.6-1.2) H 03/01/22 08:18 Estimated GFR (MDRD) 42 (>89) L 03/01/22 08:18 Glucose 106 mg/dL (70-100) H 03/01/22 08:18 Lactic Acid 2.1 mmol/L (0.5-2.2) 02/25/22 09:02 Calcium 8.6 mg/dL (8.5-10.3) 03/01/22 08:18 Magnesium 2.2 mg/dL (1.7-2.8) 02/28/22 04:29 Total Bilirubin 2.7 mg/dL (0.2-1.0) H 02/24/22 03:32 AST 22 IU/L (10-42) 02/24/22 03:32 ALT 30 IU/L (10-60) 02/24/22 03:32 Alkaline Phosphatase 223 IU/L (42-121) H 02/24/22 03:32 Troponin I High Sens 66.7 ng/L (2.3-19.7) H* 02/24/22 14:55 B-Natriuretic Peptide 6966.00 pg/mL (5-100) H 03/01/22 08:18 Total Protein 6.3 g/dL (6.7-8.2) L 02/24/22 03:32 Albumin 3.5 g/dL (3.2-5.5) 02/24/22 03:32 Globulin 2.8 g/dL (2.1-4.2) 02/24/22 03:32 Albumin/Globulin Ratio 1.3 (1.0-2.2) 02/24/22 03:32 Lipase 30 U/L (22-51) 02/24/22 03:32 SARS-CoV-2 (PCR) NOT DETECTED 02/24/22 03:16 Blood Type O NEGATIVE 02/24/22 03:32 Blood Type Recheck O NEGATIVE 02/24/22 07:58 Antibody Screen NEGATIVE 02/24/22 03:32
[2022-03-01] MEDS ORDERED: diphenhydrAMINE 25 MG CAPSULE PO PRN (13:45)
[2022-03-01] MEDS: lisinopriL 5 MG TABLET PO SCH (16:29)
[2022-03-01] MEDS: ATORVASTATIN 40 MG TABLET PO SCH (20:52)
[2022-03-02] MEDS: SODIUM CHLORIDE FLUSH 0.9% 10 ML SYRINGE IVP SCH ×3 (00:05→16:31)
[2022-03-02 04:59] LABS: BASOPHILS % (AUTO) 0.1 %; EOSINOPHILS # (AUTO) 0.1 10^3/uL (0.0-0.7); EOSINOPHILS % (AUTO) 0.6 %; HCT - HEMATOCRIT 46.1 % (42.0-52.0); HGB - HEMOGLOBIN 15.3 g/dL (14.0-18.0); LYMPHOCYTES # (AUTO) 0.2 10^3/uL (1.5-3.5); LYMPHOCYTES % (AUTO) 2.1 %; MEAN CORPUSCULAR HEMOGLOBIN 31.1 pg (27.0-31.0); MEAN CORPUSCULAR HGB CONC 33.2 g/dL (32.0-36.0); MEAN CORPUSCULAR VOLUME 93.7 fL (80.0-94.0); MEAN PLATELET VOLUME 11.7 fL (7.4-11.4); MONOCYTES # (AUTO) 0.7 10^3/uL (0.0-1.0); MONOCYTES % (AUTO) 5.8 %; NEUTROPHILS # (AUTO) 10.4 10^3/uL (1.5-6.6); NEUTROPHILS % (AUTO) 91.1 %; PLT - PLATELET COUNT 144 10^3/uL (130-450); RED BLOOD COUNT 4.92 10^6/uL (4.70-6.10); RED CELL DISTRIBUTION WIDTH 16.1 % (12.0-15.0); WHITE BLOOD COUNT 11.4 x10^3/uL (4.8-10.8)
[2022-03-02 05:06] LABS: CALCIUM 8.5 mg/dL (8.5-10.3); CREATININE 1.7 mg/dL (0.6-1.2); MAGNESIUM 2.3 mg/dL (1.7-2.8); POTASSIUM 3.5 mmol/L (3.5-5.0)
[2022-03-02] MEDS: IPRATROPIUM/ALBUTEROL 3 ML NEB INH SCH ×3 (07:15→14:02)
[2022-03-02] MEDS: SPIRONOLACTONE 25 MG TABLET PO SCH (08:12)
[2022-03-02] MEDS: ASPIRIN CHEW 81 MG TABLET PO SCH (08:29)
[2022-03-02] MEDS: carvediloL 3.125 MG TABLET PO SCH (08:29)
[2022-03-02] MEDS: ENOXAPARIN 30 MG/0.3 ML SYRINGE SUBQ SCH (08:29)
[2022-03-02] MEDS: MULTIVITAMIN W/MINERALS TABLET PO SCH (08:32)
[2022-03-02] MEDS ORDERED: FUROSEMIDE 40 MG TABLET PO SCH (09:00)
[2022-03-02] MEDS ORDERED: LORazepam 0.5 MG TABLET PO PRN (16:33)
[2022-03-02] MEDS ORDERED: DIGOXIN 125 MCG TABLET PO STA (16:34)
--- NOTE | 2022-03-02 16:38 | PROVIDER PROGRESS NOTE ---
Assessment/Plan - Problem List (1) Acute on chronic systolic (congestive) heart failure Assessment/Plan: (1) Acute on chronic systolic (congestive) heart failure Assessment/Plan: He is not hypoxic, his leg edema has resolved, but he is tachypneic when speaking and quite dyspneic with minimal activity. BNP is better. The previous Hospitalist spoke with Cardiology at [facility] in [place] afyter admission, and Cardiology felt as long as he shows evidence of improvement from a heart failure standpoint, then there would be no need to transfer him, but if he is slow to improve then we could consider transfer to higher level of care for expedited work-up. A limited bedside Echo was done and showed : 4-chamber dilation, a large LV apical aneurysm, LVEF 10%, RV function also severely depressed. he has been transitioned from IV Lasix to po Lasix. We started Coreg 3.125 bid, with hold parameters due to low BP. We started YESSENIA-I, staggering it with other meds, due to low BP, and therefore ordered at dinnertime. We also started Spironolactone Following BNP daily. I explained the Echo result to the patient and asked if the patient does not want aggressive therapy, then we could consider Hospice (since he wanted to go home the previous days AMA). However, he stated he wanted to try intensive management, which would include a cardiac work-up at a larger facility. I have reached out to [facility] and [facility] to have him accepted in transfer, but both are full and he is on the waiting lists. Today I have contacted both of those and also called [facility]. Palliative Care was requested by patient, to review his care goals and he was seen by Sonya Francois, ROMEL. He wants to be a DNR but does want to be evaluated and be offered cardiac management by specialists. I have called for the last 3 days to 3 hospitals to have him transferred for higher level of care ([facility], [facility] and [facility]). Yesterday afternoon he was accepted by research phlebotomist at [facility], accepted by the hospitalist there but they have no beds. I reached out to them twice today and a bed is expected to be open at [facility] tomorrow (2) Acute kidney injury superimposed on CKD Impression: He likely has cardiorenal syndrome. BUN/creat is elevated slightly and fluctuating with diuresis. Labs from last year revealed a creatinine of 1.9 and it is unknown if this is his baseline or if that was also acute kidney injury. We will continue to diurese him with Lasix, since he is not in neg fluid balance despite iv diuretics and on a 900 cc/day oral fluid limit We also started lisinopril and Spironolactone for his low EF. Follow BMP daily and monitor I's and Os. Avoid nephrotoxins. (3) PSVT Yesterday and today, the patient's telemetry showed PSVT. It stopped spontaneously and heart rate returned back to the 70s. He was asymptomatic. One dose of Digoxin 0.125 mg ordered yesterday and will give x1 today. Potassium and Mg being followed (4) Anxiety He is tachypneic when speaking with providers and staff, but I notice he has a normal resp rate when alone, in chair or in bed, watching TV. Impression is that of anxiety. He complains tjhat he is anxious and today requested Ativan. Will order Ativan 0.5 mg po bid prn anxiety (5) Elevated troponin Impression: His troponins were elevated at 66-70, but were flat. This was likely due to heart failure. His EKG did not suggest ischemia and he has no chest pain. Given the LV apical wall motion abnormality, he will need cardiology ischemia work-up. We are trying to get him transferred (6) Lung nodule Impression: He will need a dedicated CT for further evaluation at some point. (7) Severe protein calorie malnutrition Impression: He has significant muscle wasting of his temporal muscles and palms. He has had a weight loss of about 40 pounds in the past year (21% of his usual weight) and has significantly reduced functional capacity. 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 (8) History of colon cancer Impression: This is stable and he has a colostomy in place. (9) Non compliance with medical treatment Impression: Resolved. He threatened to leave AGAINST MEDICAL ADVICE recently twice and was able to express that he understands he is in the hospital because of his heart but he felt like he was going to either way and felt there is no benefit to hospitalization. He was agreeable to staying and ultimately ended up going back to his room and has been cooperative with therapy for the time being. For the past 3 days, he understands that he needs more treatment and even wants the option of transfer to higher level of care. (10) Elevated lactic acid level Impression: Resolved. This was likely secondary to hypoperfusion secondary to the heart failure rather than from sepsis. We will continue to treat his underlying heart failure as mentioned above. (11) Hyponatremia Impression: Resolved This was felt to be secondary to the heart failure and hypervolemic hyponatremia. Continue oral fluid restriction of 900 cc/day. Continue Lasix Follow BMP daily. (12) Hypokalemia Resolved Caused by loop diuretic Will foloow BMP daily and replace if needed - Current Meds Current Meds: Current Medications Generic Name Dose Route Start Last Admin Trade Name Freq PRN Reason Stop Dose Admin Albuterol/Ipratropium 3 ml 02/27/22 11:00 03/02/22 14:02 Ipratropium/Albuterol 3 Ml Neb INH 3 ml RTQID LINDA Administration Aspirin 81 mg 02/26/22 09:00 03/02/22 08:29 Aspirin Chew 81 Mg Tablet PO 81 mg DAILY LINDA Administration Atorvastatin Calcium 40 mg 02/26/22 21:00 03/01/22 20:52 Atorvastatin 40 Mg Tablet PO 40 mg QPM LINDA Administration Carvedilol 3.125 mg 02/28/22 13:49 03/02/22 08:29 Carvedilol 3.125 Mg Tablet PO 3.125 mg BID LINDA Administration Enoxaparin Sodium 30 mg 02/24/22 09:00 03/02/22 08:29 Enoxaparin 30 Mg/0.3 Ml Syringe SUBQ 30 mg DAILY LINDA Administration Furosemide 60 mg 03/02/22 09:00 03/02/22 08:28 Furosemide 40 Mg Tablet PO 60 mg DAILY LINDA Administration Lisinopril 2.5 mg 02/27/22 17:00 03/01/22 16:29 Lisinopril 5 Mg Tablet PO Not Given 1700 LINDA Multivitamins/Minerals 1 tab 02/27/22 16:00 03/02/22 08:32 Multivitamin W/Minerals Tablet PO 1 tab DAILYWM LINDA Administration Sodium Chloride 10 ml 02/24/22 06:55 03/01/22 05:57 Sodium Chloride Flush 0.9% 10 Ml Syringe IVP 10 ml PRN PRN Administration NEEDED PER PROVIDER ORDERS Sodium Chloride 10 ml 02/24/22 09:00 03/02/22 16:31 Sodium Chloride Flush 0.9% 10 Ml Syringe IVP 10 ml 0100,0900,1700 LINDA Administration Spironolactone 25 mg 02/28/22 13:47 03/02/22 08:12 Spironolactone 25 Mg Tablet PO 25 mg DAILY LINDA Administration - Lab Result Fish Bone Diagrams: 03/02/22 04:47 03/02/22 04:47 - Additional Planning My Orders: My Active Orders 03/02/22 09:00 Furosemide [Lasix] 60 mg PO DAILY 03/02/22 16:33 LORazepam [Ativan] 0.5 mg PO BID PRN 03/02/22 16:34 Digoxin [Lanoxin] 125 mcg PO ONCE STA 03/03/22 05:00 BMP - BASIC METABOLIC PANEL [CHEM] DAILYLAB BNP - B-NATRIURETIC PEPTIDE [IAI] DAILYLAB 03/04/22 05:00 BNP - B-NATRIURETIC PEPTIDE [IAI] DAILYLAB Subjective - Subjective Patient Reports: Resting Comfortably, Other (Feels anxious) Objective Vital Signs: Vital Signs - 24 hr 03/01/22 03/01/22 03/01/22 17:00 18:31 21:00 Temperature 36.4 C L 36.2 C L Heart Rate 74 Heart Rate [ 76 79 Brachial] Heart Rate [ Monitoring electrodes] Respiratory 24 22 24 Rate Blood Pressure 96/67 106/73 [Right Brachial artery] O2 Saturation 98 99 03/02/22 03/02/22 03/02/22 00:04 05:54 07:51 Temperature 36.4 C L 37 C 36.3 C L Heart Rate Heart Rate [ 79 72 Brachial] Heart Rate [ 87 Monitoring electrodes] Respiratory 16 14 22 Rate Blood Pressure 99/55 L 92/52 L 104/68 [Right Brachial artery] O2 Saturation 94 93 91 L 03/02/22 03/02/22 03/02/22 11:12 11:59 14:02 Temperature 36.4 C L Heart Rate 88 77 Heart Rate [ Brachial] Heart Rate [ 73 Monitoring electrodes] Respiratory 14 18 18 Rate Blood Pressure 100/64 [Right Brachial artery] O2 Saturation 97 Oxygen O2 Source Room air I&O (Last 24 Hrs): Intake and Output Totals x24h 02/28/22 03/01/22 03/02/22 23:59 23:59 23:59 Intake Total 1520 1160 980 Output Total 1550 875 388 Balance -30 285 505 General: Alert, Oriented x3 HEENT: Mucous membr. moist/pink Neck: Supple Neuro: Alert, Non Focal Cardiovascular: Regular rate Respiratory: No respiratory distress Abdomen: Soft Extremities: No edema - Results Results: Laboratory Results WBC 11.4 x10^3/uL (4.8-10.8) H 03/02/22 04:47 RBC 4.92 10^6/uL (4.70-6.10) 03/02/22 04:47 Hgb 15.3 g/dL (14.0-18.0) 03/02/22 04:47 Hct 46.1 % (42.0-52.0) 03/02/22 04:47 MCV 93.7 fL (80.0-94.0) 03/02/22 04:47 MCH 31.1 pg (27.0-31.0) H 03/02/22 04:47 MCHC 33.2 g/dL (32.0-36.0) 03/02/22 04:47 RDW 16.1 % (12.0-15.0) H 03/02/22 04:47 Plt Count 144 10^3/uL (130-450) 03/02/22 04:47 MPV 11.7 fL (7.4-11.4) H 03/02/22 04:47 Neut # (Auto) 10.4 10^3/uL (1.5-6.6) H 03/02/22 04:47 Lymph # (Auto) 0.2 10^3/uL (1.5-3.5) L 03/02/22 04:47 Ch[place]ot # (Auto) 0.7 10^3/uL (0.0-1.0) 03/02/22 04:47 Eos # (Auto) 0.1 10^3/uL (0.0-0.7) 03/02/22 04:47 Baso # (Auto) 0.0 10^3/uL (0.0-0.1) 03/02/22 04:47 Absolute Nucleated RBC 0.00 x10^3/uL 03/02/22 04:47 Nucleated RBC % 0.0 /100WBC 03/02/22 04:47 PT 17.1 secs (9.9-12.6) H 02/24/22 03:32 INR 1.5 (0.8-1.2) H 02/24/22 03:32 Bld Gas Analysis Time 0345 02/24/22 03:41 Sample Site LEFT RADIAL 02/24/22 03:41 ABG pH 7.52 (7.35-7.45) H 02/24/22 03:41 ABG pCO2 27 mmHg (34-45) L 02/24/22 03:41 ABG pO2 90 mmHg (80-100) 02/24/22 03:41 ABG HCO3 22.0 mmol/L (22.0-26.0) 02/24/22 03:41 ABG Total CO2 22.8 MMOL/L (21.0-29.0) 02/24/22 03:41 ABG O2 Saturation 98 % (94-98) 02/24/22 03:41 ABG Base Excess 0.7 mmol/L (-2.0-3.0) 02/24/22 03:41 Jaylen Test POSITIVE 02/24/22 03:41 Room Air YES 02/24/22 03:41 Sodium 136 mmol/L (135-145) 03/02/22 04:47 Potassium 3.5 mmol/L (3.5-5.0) 03/02/22 04:47 Chloride 97 mmol/L (101-111) L 03/02/22 04:47 Carbon Dioxide 28 mmol/L (21-32) 03/02/22 04:47 Anion Gap 11.0 (6-13) 03/02/22 04:47 BUN 66 mg/dL (6-20) H 03/02/22 04:47 Creatinine 1.7 mg/dL (0.6-1.2) H 03/02/22 04:47 Estimated GFR (MDRD) 39 (>89) L 03/02/22 04:47 Glucose 145 mg/dL (70-100) H 03/02/22 04:47 Lactic Acid 2.1 mmol/L (0.5-2.2) 02/25/22 09:02 Calcium 8.5 mg/dL (8.5-10.3) 03/02/22 04:47 Magnesium 2.3 mg/dL (1.7-2.8) 03/02/22 04:47 Total Bilirubin 2.7 mg/dL (0.2-1.0) H 02/24/22 03:32 AST 22 IU/L (10-42) 02/24/22 03:32 ALT 30 IU/L (10-60) 02/24/22 03:32 Alkaline Phosphatase 223 IU/L (42-121) H 02/24/22 03:32 Troponin I High Sens 66.7 ng/L (2.3-19.7) H* 02/24/22 14:55 B-Natriuretic Peptide 7951.00 pg/mL (5-100) H 03/02/22 04:47 Total Protein 6.3 g/dL (6.7-8.2) L 02/24/22 03:32 Albumin 3.5 g/dL (3.2-5.5) 02/24/22 03:32 Globulin 2.8 g/dL (2.1-4.2) 02/24/22 03:32 Albumin/Globulin Ratio 1.3 (1.0-2.2) 02/24/22 03:32 Lipase 30 U/L (22-51) 02/24/22 03:32 SARS-CoV-2 (PCR) NOT DETECTED 02/24/22 03:16 Blood Type O NEGATIVE 02/24/22 03:32 Blood Type Recheck O NEGATIVE 02/24/22 07:58 Antibody Screen NEGATIVE 02/24/22 03:32
[2022-03-02 16:41] VITALS: BP 97/76
--- NOTE | 2022-03-02 17:22 | Discharge Plan ---
Discharge Plan Problem Reviewed?: Yes Disposition: 02 Transfer Acute Care Hosp Condition: Stable No Smoking: If you smoke, Please STOP! Call for help. Follow-up with: Mian Pepper MD [Primary Care Provider] -
--- NOTE | 2022-03-02 17:29 | DISCHARGE SUMMARY ---
Discharge Summary Admit Date: 02/24/22 Discharge Date: 03/02/22 Discharging Provider: Dr Thao Botello Primary Care Provider: Dr Christopher Pepper Code Status: Do Not Attempt Resuscitation Condition at Discharge: Stable Discharge Disposition: 02 Transfer Acute Care Hosp Discharge Facility Name: [facility] History of Present Illness: Per the admission H&P of Dr Ok Monk: This is a 81-year-old male with a past medical history significant for colon cancer in 2003 with a colostomy bag, history of remote alcoholism, and hypertension. He presents today complaining of worsening shortness of breath. He states this has been going on now for the past 2 years but has really progressed over 2 months along with no appetite, and he is now orthopneic with leg edema and he decided to come in to the ED. He states he becomes severely dyspneic with minimal activity. He has had a nonproductive cough and endorses orthopnea. He has noticed his legs have become more edematous over the past couple of years, for which his PCP ordered Lasix. He denies any chest pain or palpitations. He does not know of any history of heart or coronary artery disease. Based off of the research she has done online, he felt that he may h ave congestive heart failure, and that is also why he decided to come in today. He states he has been taking Lasix on a daily basis for the past 2 years but he cannot recall the dose. He does not believe he has a history of kidney disease. He reports his cancer is in remission but he never had close follow-up after the colostomy. He smoked 2 packs a day for 30 years but quit in 1984. He drank a liter and a half of wine on a daily basis for about 10 years but quit over 7 years ago. In the ED he is tachypneic and orthopneic, BP is soft at 105/72, HR is 96 in sinus rthythm, BNP is 4830 and CXR shows CHF. His troponin is elevated at 64, creat is 2.4 (last one was 1.9), Lactic acid is 3.4. He is Covid neg. The Hospitalist team was contacted for admission and managing new onset of CHF, AMARILIS, and elevated Lactic Acid level. We discussed goals of care and he confirms that he is a DNR and does not want mechanical ventilation. He is agreeable to any therapeutics including cardiac catheterization if necessary. - HOSPITAL COURSE Hospital Course: (1) Acute on chronic systolic (congestive) heart failure He was started on IV b.i.d. Lasix. The Hospitalist spoke with Cardiology at [facility] in [place] after admission when BNP jen to >6000, and Cardiology felt that as long as he showed evidence of improvement from a heart failure standpoint, then there would be no need to transfer him, but if he was slow to improve then we could consider transfer to higher level of care for expedited work-up. His leg edema quickly resolved but he remained orthopneic and had rales. A limited bedside 2D and Doppler Echo was performed (by the Hospitalist, who also is a Board-Certified [employer], since we have no Echo service [facility]). The Echo showed: 4-chamber dilation, a large LV apical aneurysm, LVEF 10%, RV function also severely depressed. We then started Coreg 3.125 b.i.d., Lisonopril, and Spironolactone, staggered and with holding parameters due to low BP. He was eventually transitioned to oral Lasix. His BNP fluctuated and remained elevated: 4830>> 6302>> 8488>> 6700>> 6966>> 7954 (at the time of transfer). He was seen by Palliative Care in consult. The patient wanted to try intensive management, to include a cardiac work-up at a larger facility. He was eventually accepted and transferred to [facility] in stable condition by ambulance. (2) Elevated troponin His troponins were elevated at 66-70, but were flat. This was likely due to the heart failure. (3) Elevated lactic acid level Resolved. This was likely secondary to hypoperfusion secondary to his heart failure, as there were no signs of sepsis. (4) Acute kidney injury superimposed on CKD He likely has cardiorenal syndrome. BUN/creat was abnormal and fluctuated with diuresis. Labs from last year revealed a creatinine of 1.9 and it is unknown if that was his baseline or if that was also acute kidney injury. BMP was watched daily as we started Lasix, Lisinopril and Spironolactone for his low EF. At the time of transfer, his BUN/creat were 66/1.7. (5) Hyponatremia He had hypervolemic hyponatremia. This resolved after many days with Lasix treatment and oral fluid restriction of 900 cc/day. (6) Hypokalemia Caused by loop diuretic. It was carefully replaced, given his poor renal function. (7) PSVT On 2 days, the patient's telemetry showed PSVT, 18-beat and 8-beat, at rate 130, it stopped spontaneously. He was asymptomatic. He received one-time doses of oral Digoxin 0.125 mg and Potassium was replaced. (8) Lung nodule He will need a dedicated CT and further evaluation at some point. 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 He had significant muscle wasting, weight loss of about 40 pounds in the past year (21% of his usual weight) and has signi ficantly reduced functional capacity. (10) Anxiety He was tachypneic when speaking with providers and staff and admitted to anxiety on his last day and requested oral Ativan. (11) History of colon cancer He reported the cancer is in remission and he has a colostomy in place. - ALLERGIES Allergies/Adverse Reactions: Allergies Allergy/AdvReac Type Severity Reaction Status Date / Time No Known Drug Allergies Allergy Verified 02/24/22 03:01 - MEDICATIONS Home Medications: Ambulatory Orders Medication Instructions Recorded Confirmed Ascorbic Acid [Vitamin C] 500 mg PO DAILY 02/24/22 02/24/22 Furosemide [Lasix] 40 mg PO DAILY 02/24/22 02/24/22 Ubidecarenone/Vit E Acet [Co Q-10 1 each PO DAILY 02/24/22 02/24/22 100 mg Softgel] Vitamin E 400 unit PO DAILY 02/24/22 02/24/22 - PHYSICAL EXAM AT DISCHARGE General Appearance: positive: No acute distress, Alert, Other (Cachectic and appears fatigued and weak.) Eyes Bilateral: positive: Normal inspection, EOMI ENT: positive: Dry mucous membranes Neck: positive: Nml inspection, No JVD (in vertical position) Respiratory: positive: Rales (at both bases) Cardiovascular: positive: Regular rate & rhythm, Other (distant heart sounds) Abdomen: positive: Non-tender, Nml bowel sounds, No distention Skin: positive: Warm, Dry Extremities: positive: Non-tender, No pedal edema, Other (venous stasis discoloration ) - LABS Result Diagrams: 03/02/22 04:47 03/02/22 04:47 - DIAGNOSTIC IMAGING Diagnostic Imaging Results: Final report reviewed - FOLLOW UP Follow Up: This will be determined after his hospitalization at [facility]. - TIME SPENT Time Spent in Discharge (Minutes): 60
[2022-03-02] MEDS: lisinopriL 5 MG TABLET PO SCH (17:56)
== END 2022-03-02 19:30 | disposition short-term general hospital (02) | DRG 291 ==
LOC: EDUNIT# → ED 02:39 → MS2 06:55 → OBSVTOIN 09:52
PROVIDERS: ADMIT Internal Medicine; ATTEND Internal Medicine
DX: I13.0 Hypertensive heart and chronic kidney disease with heart failure and stage 1 through stage 4 chronic kidney disease, or unspecified chronic kidney disease (principal); I50.9 Heart failure, unspecified; I50.23 Acute on chronic systolic (congestive) heart failure; E87.3 Alkalosis; E43 Unspecified severe protein-calorie malnutrition; N17.9 Acute kidney failure, unspecified; E87.1 Hypo-osmolality and hyponatremia; R64 Cachexia; E87.2 Acidosis; R94.31 Abnormal electrocardiogram [ECG] [EKG]; Z20.822 Contact with and (suspected) exposure to COVID-19; Z68.1 Body mass index [BMI] 19.9 or less, adult; I47.1 Supraventricular tachycardia; N18.9 Chronic kidney disease, unspecified; I49.3 Ventricular premature depolarization; Z86.73 Personal history of transient ischemic attack (TIA), and cerebral infarction without residual deficits; J44.9 Chronic obstructive pulmonary disease, unspecified; F32.A Depression, unspecified; F41.9 Anxiety disorder, unspecified; H54.7 Unspecified visual loss; G47.9 Sleep disorder, unspecified; E87.6 Hypokalemia; R77.8 Other specified abnormalities of plasma proteins; R91.1 Solitary pulmonary nodule; Z63.8 Other specified problems related to primary support group; Z66 Do not resuscitate; Z79.899 Other long term (current) drug therapy; Z85.038 Personal history of other malignant neoplasm of large intestine; Z87.891 Personal history of nicotine dependence; Z87.898 Personal history of other specified conditions; Z90.49 Acquired absence of other specified parts of digestive tract; Z91.19 Patient's noncompliance with other medical treatment and regimen; Z93.3 Colostomy status
CPT/HCPCS: 36415; 36600; 71045; 80048; 80053; 82803; 83605; 83690; 83735; 83880; 84132; 84484; 85025; 85610; 86850; 86900; 86901; 87635; 93005; 94640; 94664; 96374; 97110; 97161; 97530; 99284; 99285; A9270; J1650; 99222